=== PATIENT | female | born 1995 | race Hispanic/Latino ===

== ENCOUNTER 2017-11-08 00:34 | Emergency (ER) | payer MEDICAID | END 2017-11-08 00:49 | disposition home or self-care (01) | LOC: EDH 00:34 | DX: Z02.83 Encounter for blood-alcohol and blood-drug test (principal) ==

== ENCOUNTER 2024-10-19 15:15 | Inpatient (IN) | payer SELFPAY ==
[~2024-10-19] VITALS: Ht 152.4 cm; Wt 57.2 kg
[~2024-10-19 15:15] MED LIST: ACET-2079 PO; DOCU-116 PO; IBUP-2077 PO; PREN1TAB63 PO
--- NOTE | 2024-10-19 15:50 | NUR ---
PENDING TEST & GFR RESULTS, IV SITE, & CONSENT FOR CT EXAM.
[2024-10-19] MEDS: acetaMINOPHEN 500 MG TABLET PO ONE (15:59)
[2024-10-19 16:14] LABS: BASOPHILS # (AUTO) 0.02 K/uL (0.00-0.20); BASOPHILS % (AUTO) 0.3 % (0.0-5.0); EOSINOPHILS # (AUTO) 0.04 K/uL (0.00-0.70); EOSINOPHILS % (AUTO) 0.6 % (0.0-8.0); HEMATOCRIT 39.5 % (36-48); IMMATURE GRANULOCYTE ABSOLUTE 0.02 K/uL (0-1); LYMPHOCYTES # (AUTO) 1.8 K/uL (1.0-4.8); LYMPHOCYTES % (AUTO) 24.9 % (21.0-51.0); MEAN CORPUSCULAR HGB CONC 33.2 g/dL (32.0-36.0); MEAN CORPUSCULAR VOLUME 96.6 fL (79-99); MONOCYTES # (AUTO) 0.6 K/uL (0.1-1.0); MONOCYTES % (AUTO) 8.2 % (3.0-13.0); NEUTROPHILS # (AUTO) 4.7 K/uL (1.8-7.7); NEUTROPHILS % (AUTO) 65.7 % (40.0-77.0); PLATELET COUNT (AUTO) 295 K/uL (130-400); RED BLOOD CELL COUNT(AUTO) 4.09 MIL/uL (4.00-5.50); RED CELL DISTRIBUTION WIDTH 12.2 % (11.0-15.5); WHITE BLOOD COUNT (AUTO) 7.1 K/uL (4.8-10.8)
[2024-10-19] MEDS: morPHINE 2 MG SYG IVP ONE (16:17)
[2024-10-19] MEDS: ondanSETRON 4MG INJ IVP ONE (16:17)
[2024-10-19 16:23] LABS: CREATININE 0.7 mg/dL (0.5-1.0); POTASSIUM 3.6 mmol/L (3.5-5.1)
--- NOTE | 2024-10-19 16:35 | HMCIMG ---
CHEST 1VW HISTORY: Status post fall COMPARISON: None FINDINGS: A frontal projection of the chest was obtained. No acute pulmonary infiltrates is seen. The heart is normal in size. Degenerative changes are seen. Prominent interstitial markings are seen. Aortic calcifications are seen. IMPRESSION: 1. No acute pulmonary infiltrate is seen.
[2024-10-19] MEDS ORDERED: IOHEXOL 350 MG/ML 100ML INFUS..BTL IV ONE (16:40)
[2024-10-19] MEDS: hydroMORPHone 1 MG INJ IVP ONE (17:33)
--- NOTE | 2024-10-19 17:35 | HMCIMG ---
CT CHEST/ABD/PELV W/CONRAST HISTORY: Status post fall COMPARISON: None TECHNIQUE: Multiple sequential axial images of the chest were obtained from the thoracic inlet through upper abdomen. Patient was given 100 cc of Omnipaque through intravenous route. FINDINGS: There are left lower lung subsegmental atelectasis/infiltrates suggestive of lung contusion. No pleural effusion or pericardial effusion is seen. There is small less than 5% left pneumothorax. Nondisplaced fracture cannot be excluded. There are normal size mediastinal and hilar lymph nodes. The heart is not enlarged. Degenerative changes of the thoracolumbar spine are present. There is no evidence of adrenal nodule. IMPRESSION: 1. There is small less than 5% left pneumothorax. Nondisplaced fracture cannot be excluded. There are left lower lung subsegmental atelectasis/infiltrates suggestive of lung contusion. Report was given to the emergency room physician. CT CHEST/ABD/PELV W/CONRAST HISTORY: Status post fall COMPARISON: None TECHNIQUE: Multiple sequential axial images of the abdomen and pelvis were obtained from the dome of the diaphragm through symphysis pubis. Patient was given 100 cc of Omnipaque through intravenous route. Oral contrast was not given. FINDINGS: The liver, spleen, adrenal glands and pancreas are unremarkable. There is no evidence of hydronephrosis bilaterally. No evidence of renal stone is seen. Fecal material is seen in the colon. There are normal size retroperitoneal and mesenteric lymph nodes. No ascites is seen. Tiny free fluid is seen in the posterior cul-de-sac. Pelvic sidewalls are symmetric bilaterally. Bladder is well distended without wall thickening. IMPRESSION: 1. No acute findings. CT was performed with one or more following dose reduction techniques: automated exposure control, adjustment of the mA and kv according to patient's size, or use of a iterative reconstruction technique.
--- NOTE | 2024-10-19 18:15 | ERN ---
General Chief Complaint: Rib Pain Stated Complaint: PAIN LEFT SIDE RIBS Time Seen by MD: 15:16 Time Seen by Midlevel: 15:16 Source: patient History of Present Illness Initial Comments Patient is a 29-year-old female with no significant past medical history presenting to the emergency department with left lower chest wall pain. The patient reports falling three days ago onto her left side. The pain to her left lower ribcage has been progressively worsening. Today she was unable to take deep breaths so she decided to report to the ER for further evaluation. At the time of the fall she denied any head injury or loss of consciousness. Denies being on any blood thinners. Denies any past surgical history. Allergies: Coded Allergies: ibuprofen (Unverified Allergy, Mild, 12/15/23) Home Meds Reported Medications Acetaminophen with Codeine (Acetaminophen-Cod #3 Tablet) 300 Mg-30 Mg Tablet, 1 EACH PO Q4H, #30 TAB 12/16/23 Ibuprofen (Ibuprofen 800 mg Tab) 800 Mg Tab, 800 MG PO Q8H PRN for PAIN, #60 TAB 12/16/23 Docusate Sodium (Colace) 100 Mg Capsule, 100 MG PO BID, #60 CAP 12/16/23 Vit/Iron Fumarate/FA ( Tablet) 28 Mg Iron-800 Mcg Tablet, 1 EACH PO HS, TAB 12/15/23 Past Medical History Past Medical History: Gallstones, GERD Past Surgical History: Surgical History Other: COLONOSCOPY, EGD Female( History) LMP: Sep 21, 2024 ROS Dictation CONSTITUTIONAL: Negative except for HPI HEAD/FACE: Negative except for HPI EENT: Negative except for HPI RESPIRATORY: Negative except for HPI GASTROINTESTINAL/ABDOMINAL: Negative except for HPI GENITOURINARY: Negative except for HPI MUSCULOSKELETAL: Negative except for HPI INTEGUMENTARY: Negative except for HPI NEUROLOGICAL/PSYCH: Negative except for HPI HEMATOLOGIC/LYMPHATIC: Negative except for HPI All Systems Negative, Except as noted above. 13 point review of systems assessed and all negative except for above. Physical Exam Physical Exam Dictation Vital Signs reviewed General Appearance: Alert, oriented x 3, no acute distress, well developed, nourished. Head and Face: non-traumatic. Eyes: PERRL, pink conjunctivas, eyelid no trauma, anterior chamber with arcus senilis. Ears: Pinnas intact and no signs of trauma or erythema ear canals clear and no discharge TM no erythema Nose: No discharge, no bleeding. Oropharynx: Mouth normal, tongue pink, pharynx clear,no erythema, tonsils no exudates, no abscesses noted, mucous membrane moist Neck: Supple, non-tender, no thyromegaly, no masses, no JVD, no bruits Breast:Deferred Chest: Moderate to severe tenderness to the left lower chest wall Lungs:Clear, well-ventilated, symmetric, no rales, no wheezing, no rhonchi, no stridor, good breath sounds bilaterally Heart: Regular rate, regular rhythm, no murmur, no gallops Vascular: no peripheral edema, Abdomen: Soft, positive bowel sounds, nondistended, no guarding, nontender, no rebound, no masses no hepatomegaly, no splenomegaly, no Lazo's sign, no hernias. Rectal: Deferred Genital: Deferred Neurological: Normal speech, motor function intact, sensory function intact Musculoskeletal: Neck nontender, full range of motion, back nontender, full range of motion, Extremities: nontender, full range of motion Skin: Color pink, dry, no turgor, no rash, no lacerations, no abrasions, no contusions. Lymphatic: Deferred Results Laboratory and Microbiology Lab and Micro Result Laboratory Tests Test 10/19/24 16:07 White Blood Count 7.1 K/uL (4.8-10.8) Red Blood Count 4.09 MIL/uL (4.00-5.50) Hemoglobin 13.1 g/dL (12.0-16.0) Hematocrit 39.5 % (36-48) Mean Corpuscular Volume 96.6 fL (79-99) Mean Corpuscular Hemoglobin 32.0 pg (27.0-33.0) Mean Corpuscular Hemoglobin Concent 33.2 g/dL (32.0-36.0) Red Cell Distribution Width 12.2 % (11.0-15.5) Platelet Count 295 K/uL (130-400) Mean Platelet Volume 10.5 fL (7.5-10.5) Immature Granulocyte % (Auto) 0.3 % (0-1) Neutrophils (%) (Auto) 65.7 % (40.0-77.0) Lymphocytes (%) (Auto) 24.9 % (21.0-51.0) Monocytes (%) (Auto) 8.2 % (3.0-13.0) Eosinophils (%) (Auto) 0.6 % (0.0-8.0) Basophils (%) (Auto) 0.3 % (0.0-5.0) Neutrophils # (Auto) 4.7 K/uL (1.8-7.7) Lymphocytes # (Auto) 1.8 K/uL (1.0-4.8) Monocytes # (Auto) 0.6 K/uL (0.1-1.0) Eosinophils # (Auto) 0.04 K/uL (0.00-0.70) Basophils # (Auto) 0.02 K/uL (0.00-0.20) Absolute Immature Granulocyte (auto 0.02 K/uL (0-1) Nucleated Red Blood Cells 0.0 % (0.0-0.19) Sodium Level 136 mmol/L (136-145) Potassium Level 3.6 mmol/L (3.5-5.1) Chloride Level 102 mmol/L (101-111) Carbon Dioxide Level 29 mmol/L (21-32) Blood Urea Nitrogen 13 mg/dL (7-18) Creatinine 0.7 mg/dL (0.5-1.0) Glomerular Filtration Rate Calc 121 mL/min (>90) Random Glucose 92 mg/dL (70-105) Total Calcium 9.4 mg/dL (8.5-10.1) Total Creatine Kinase 103 U/L (21-232) Troponin I High Sensitivity 9 ng/L (4-50) Serum Test, Qualitative NEGATIVE (NEGATIVE) Labs Reviewed?: Yes MDM MDM: Patient is a 29-year-old female with no significant past medical history presenting to the emergency department with left lower chest wall pain. The patient reports falling three days ago onto her left side. The pain to her left lower ribcage has been progressively worsening. Today she was unable to take deep breaths so she decided to report to the ER for further evaluation. At the time of the fall she denied any head injury or loss of consciousness. Denies being on any blood thinners. Denies any past surgical history. On physical examination the patient appears to be in moderate amount of distress secondary to pain. There is some moderate to severe tenderness to the left lower ribcage. There was no crepitus noted. Breath sounds are present bilaterally. A chest x-ray was obtained to rule out a large pneumothorax however her chest x-ray does not reveal any acute abnormalities. Given the patient's clinical presentation of severe pain a CT scan of the chest abdomen and pelvis with contrast was ordered. Your CBC and chemistries are unremarkable. CT scan reveals a small left pneumothorax of less than 5%. There was also a pulmonary contusion noted on CT scan. There was no obvious rib fracture but an underlying nondisplaced rib fracture can not be excluded at this time. The patient was placed on 4 L nasal cannula. Case was discussed with general surgeon on-call who agrees to consult on the patient. He recommends admission to hospitalist service. The case was then discussed with the hospitalist on-call who agrees to admit the patient for further observation and management. Differential diagnosis: Pneumothorax, rib fracture, pulmonary contusion Rationale: Tests considered and ordered secondary to shared decision making include: Previous outside records reviewed: Old ER visits. Risk of complication and/or morbidity or mortality of patient management: None Medications-Per medication reconciliation Need for hospitalization: Patient does meet criteria for hospitalization. Need for emergency major/minor surgery: No There are no social concerns with this patient. Prescription drug management Prescriptions will include symptomatic care Patient's prior external medical records from other ER visits were reviewed by me as indicated. Prior testing and results from previous visits were reviewed. Prior tests were taken into account with medical decision making and resource utilization, independent historian/historians were used to obtain complete medical history. I independently interpreted the test that were performed, results were reviewed by me and considered findings on radiology if ordered. Medical management and examination interpretation discussions were had by me with other qualified healthcare professionals as indicated for the patient's care. ED Course Orders Procedure Category Date Status Time Cbc With Differential LAB 10/19/24 Complete 15:43 Basic Metabolic Panel LAB 10/19/24 Complete 15:43 Testing, LAB 10/19/24 Complete Serum Hcg 15:43 Troponin I High LAB 10/19/24 Complete Sensitivity 15:43 Creatine Kinase, Total LAB 10/19/24 Complete 15:43 Ct Chest/Abd/Pelv CT 10/19/24 Resulted W/Conrast 15:43 Acetaminophen 500mg PHA 10/19/24 Complete Tab (Tylenol 500mg T 16:00 Chest 1vw RAD 10/19/24 Resulted 16:08 Morphine 2mg Syg PHA 10/19/24 Complete (Morphine 2mg Syg) 16:30 Ondansetron 4mg Inj PHA 10/19/24 Complete (Zofran 4mg Inj) 16:30 Iohexol (Omnipaque) PHA 10/19/24 Complete 16:40 Hydromorphone 1 Mg PHA 10/19/24 Complete Inj (Dilaudid 1mg Inj 17:30 Current Medications Medications (Trade) Dose Ordered Sig/Issa Route PRN Reason Start Time Stop Time Status Last Admin Dose Admin Acetaminophen (TYLenol 500MG TAB) 1,000 mg ONCE ONCE PO 10/19/24 16:00 10/19/24 16:01 DC Hydromorphone HCl (DiLAUDid 1MG INJ) 1 mg ONCE ONCE IVP 10/19/24 17:30 10/19/24 17:31 DC 10/19/24 17:33 Iohexol (Omnipaque) 35,000 mg STK-MED ONCE IV 10/19/24 16:40 10/19/24 16:40 DC Morphine Sulfate (morPHINE 2MG SYG) 2 mg ONCE ONCE IVP 10/19/24 16:30 10/19/24 16:31 DC 10/19/24 16:17 Ondansetron HCl (zoFRAN 4MG INJ) 4 mg ONCE ONCE IVP 10/19/24 16:30 10/19/24 16:31 DC 10/19/24 16:17 Vital Signs Date Time Temp Pulse Resp B/P (MAP) Pulse Ox O2 Delivery O2 Flow Rate FiO2 10/19/24 17:39 98.1 69 18 100/61 98 Nasal Cannula* 4 36 10/19/24 17:13 98.1 82 18 112/58 98 Room Air* 0 21 10/19/24 15:55 98.8 84 20 104/62 98 Room Air* 0 21 10/19/24 15:22 98.6 94 18 124/74 100 Room Air [address] [address] IMAGING REPORT Signed PATIENT: GREG MAXWELL MR#: [id number] : 1995 SEX: F AGE: 29 LOCATION: [facility] ORDER [id number] STATUS: REG ER REPORT#: [id number] SERVICE 1543 REASON: r/o pneumothorax/rib fractures/pulmonary contusion s/p fall ORDERING PHYSICIAN: VERONIQUE QUEZADA PROCEDURE: CAP W - CT CHEST/ABD/PELV W/CONRAST CT CHEST/ABD/PELV W/CONRAST HISTORY: Status post fall COMPARISON: None TECHNIQUE: Multiple sequential axial images of the chest were obtained from the thoracic inlet through upper abdomen. Patient was given 100 cc of Omnipaque through intravenous route. FINDINGS: There are left lower lung subsegmental atelectasis/infiltrates suggestive of lung contusion. No pleural effusion or pericardial effusion is seen. There is small less than 5% left pneumothorax. Nondisplaced fracture cannot be excluded. There are normal size mediastinal and hilar lymph nodes. The heart is not enlarged. Degenerative changes of the thoracolumbar spine are present. There is no evidence of adrenal nodule. IMPRESSION: 1. There is small less than 5% left pneumothorax. Nondisplaced fracture cannot be excluded. There are left lower lung subsegmental atelectasis/infiltrates suggestive of lung contusion. Report was given to the emergency room physician. CT CHEST/ABD/PELV W/CONRAST HISTORY: Status post fall COMPARISON: None TECHNIQUE: Multiple sequential axial images of the abdomen and pelvis were obtained from the dome of the diaphragm through symphysis pubis. Patient was given 100 cc of Omnipaque through intravenous route. Oral contrast was not given. FINDINGS: The liver, spleen, adrenal glands and pancreas are unremarkable. There is no evidence of hydronephrosis bilaterally. No evidence of renal stone is seen. Fecal material is seen in the colon. There are normal size retroperitoneal and mesenteric lymph nodes. No ascites is seen. Tiny free fluid is seen in the posterior cul-de-sac. Pelvic sidewalls are symmetric bilaterally. Bladder is well distended without wall thickening. IMPRESSION: 1. No acute findings. CT was performed with one or more following dose reduction techniques: automated exposure control, adjustment of the mA and kv according to patient's size, or use of a iterative reconstruction technique. DICTATED BY: MEHDI CARLSON MD DATE: 10/19/24 171 ELECTRONICALLY SIGNED BY: MEHDI CARLSON MD DATE: 10/19/24 5050 DX & DISP Disposition: Inpatient Decision to Admit Date: Oct 19, 2024 Departure Impression: Primary Impression: Pneumothorax, left Additional Impressions: Left pulmonary contusion, Fall Condition: Stable Referrals: MARGO AMBROSIO DO (PCP) I have reviewed the case, and I agree with, Diagnosis and Plan I performed the substantive portion of the visit. I have reviewed and personally made and approve the management plan that is documented in the note by myself or the JOSE ANTONIO. I acknowledge for responsibility for the patient's management plan. VERONIQUE QUEZADA Oct 19, 2024 18:15
--- NOTE | 2024-10-19 18:23 | HP ---
[facility] HISTORY AND PHYSICAL Date of Service: Oct 19, 2024 Time of Service: 18:21 PCP: Dr. Wen Soria Supervising physicians: Dr. Centeno & Dr. Bauer HISTORY OF PRESENT ILLNESS: Ms. Sanabria is a 29-year-old female with history of GERD who presented to the emergency department with left lower rib/ lower chest wall pain onset 3 days s/p a fall injury. The patient reported that she was mopping, slipped hitting her left side on furniture. The pain to her left lower ribcage has been progressively worsening, and today she was unable to take deep breaths which prompted the ER visit. At the time of the fall she denied any head injury or loss of consciousness. Denies being on any blood thinners. CT chest/abdomen/pelvis with contrast: There is small less than 5% left pneumothorax. Nondisplaced fracture cannot be excluded. There are left lower lung subsegmental atelectasis/infiltrates suggestive of lung contusion. All labs are WNL including a troponin. ED provider request catalyst admit the patient with the diagnosis of left pneumothorax and left pulmonary contusion s/p fall. I assessed/examined patient at bedside in ED 3. The patient's breathing was even, unlabored, on2 L nasal cannula saturating 99%. The patient reports that Dr. Gatica, general surgeon saw her and reports that he said due to big hit and collapse lung she will be admitted for observation. She reports that she is very nauseated, and has had Zofran about 2 hours ago. REVIEW OF SYSTEMS 12-point ROS reviewed with the patient. All pertinent positives mentioned above. Otherwise negative, noncontributory, or non-pertinent. PAST MEDICAL HISTORY: GERD PAST SURGICAL HISTORY: , colonoscopy, EGD PAST SOCIAL HISTORY: Denied: Alcohol, illicit drug, tobacco use FAMILY HISTORY: Noncontributory Coded Allergies: ibuprofen (Unverified Allergy, Mild, 12/15/23) PHYSICAL EXAM GENERAL APPEARANCE: The patient is awake, alert, and oriented, in no acute cardiopulmonary distress. NEUROLOGICAL: Cranial nerves II-XII grossly intact. Motor is 5/5 in bilateral upper and lower extremities proximal to distal. No sensory deficits. HEENT: Face is symmetric. Pupils are equal and reactive. Extraocular movements are intact. NECK: Supple. No JVD. No thyromegaly. No submental, submandibular, pre- /postauricular, occipital or supraclavicular lymphadenopathy. CHEST: Normal chest expansion. No Telemetry. LUNGS: Absence of any rales, rhonchi or any wheezing. CARDIOVASCULAR: Regular. S1 and S2 normal. No appreciable rubs, murmurs or gallops. ABDOMEN: Soft, nontender, and nondistended. There is no rebound, voluntary guarding, or rigidity. : Deferred. No Mendoza. EXTREMITIES: Non-edematous and not cyanotic. No clubbing. Good capillary refill. SKIN: No skin breakdown. Vital Sign (Last 24 Hours) 10/19/24 17:39 Temp 98.1 Pulse 69 Resp 18 B/P (MAP) 100/61 Pulse Ox 98 O2 Delivery Nasal Cannula* O2 Flow Rate 4 FiO2 36 LABS: Laboratory: Test 10/19/24 16:07 Range/Units White Blood Count 7.1 4.8-10.8 K/uL Red Blood Count 4.09 4.00-5.50 MIL/uL Hemoglobin 13.1 12.0-16.0 g/dL Hematocrit 39.5 36-48 % Mean Corpuscular Volume 96.6 79-99 fL Mean Corpuscular Hemoglobin 32.0 27.0-33.0 pg Mean Corpuscular Hemoglobin Concent 33.2 32.0-36.0 g/dL Red Cell Distribution Width 12.2 11.0-15.5 % Platelet Count 295 130-400 K/uL Mean Platelet Volume 10.5 7.5-10.5 fL Immature Granulocyte % (Auto) 0.3 0-1 % Neutrophils (%) (Auto) 65.7 40.0-77.0 % Lymphocytes (%) (Auto) 24.9 21.0-51.0 % Monocytes (%) (Auto) 8.2 3.0-13.0 % Eosinophils (%) (Auto) 0.6 0.0-8.0 % Basophils (%) (Auto) 0.3 0.0-5.0 % Neutrophils # (Auto) 4.7 1.8-7.7 K/uL Lymphocytes # (Auto) 1.8 1.0-4.8 K/uL Monocytes # (Auto) 0.6 0.1-1.0 K/uL Eosinophils # (Auto) 0.04 0.00-0.70 K/uL Basophils # (Auto) 0.02 0.00-0.20 K/uL Absolute Immature Granulocyte (auto 0.02 0-1 K/uL Nucleated Red Blood Cells 0.0 0.0-0.19 % Sodium Level 136 136-145 mmol/L Potassium Level 3.6 3.5-5.1 mmol/L Chloride Level 102 101-111 mmol/L Carbon Dioxide Level 29 21-32 mmol/L Blood Urea Nitrogen 13 7-18 mg/dL Creatinine 0.7 0.5-1.0 mg/dL Glomerular Filtration Rate Calc 121 >90 mL/min Random Glucose 92 70-105 mg/dL Total Calcium 9.4 8.5-10.1 mg/dL Total Creatine Kinase 103 21-232 U/L Troponin I High Sensitivity 9 4-50 ng/L Serum Test, Qualitative NEGATIVE NEGATIVE DIAGNOSTICS / RADIOLOGY: [ ] ASSESSMENT: Left pneumothorax, less than 5%, s/p traumatic fall, per CT chest with contrast Nondisplaced fracture cannot be excluded, per CT chest Left lung contusion, per CT chest Intractable left lower rib/lower chest wall pain s/p fall injury three days ago Dyspnea, POA Intractable nausea GERD PLAN: Admit to medical floor with continuous telemetry monitoring. Dr. Lundberg, general surgeon has seen the patient in ED. He accepts patient as consult. Monitor respiratory status closely. Continue oxygen therapy as needed. Titrate oxygen to keep SpO2 equal to greater than 92%. Albuterol and Atrovent as needed for shortness of breath or wheezing. P.r.n. medications for: Pain management, fever, nausea, vomiting, constipation, hypertension. Reconcile home medications once available. Monitor renal and liver function. Monitor electrolytes and treat accordingly. A.m. labs/diagnostics: CBC, BMP, Mag, phos, chest x-ray Pending UA and urine drug screen. ADVANCED CARE PLANNING 1. Which of the following were discussed? Hospice Care - No Therapeutic options - Yes Advance Directives - Yes Other discussions - 2. Discussed with who? Patient 3. Voluntary nature of this service was explained to the patient? Yes 4. Amount of time spent - __ over 45 minutes 5. Reviewed by Physician? (if this service was performed by NPP) Yes Patient seen and examined by me. Agree with note by MOTOR VEHICLE CLERK SEE ADDITIONAL ORDERS PER CHART DISCUSSED WITH NURSING STAFF MALACHI BARBA HYDRAULIC TECHNICIAN Oct 19, 2024 18:23
[2024-10-19] MEDS ORDERED: IpraTROPium/alBUTERol SULFATE 3 ML SOLUTION IH PRN (18:30)
[2024-10-19] MEDS ORDERED: hydrALAZine 20MG/ML VIAL IV PRN (18:30)
[2024-10-19] MEDS ORDERED: TEMAZepam 15 MG CAPSULE PO PRN (18:30)
[2024-10-19] MEDS ORDERED: doCUSate SODIUM 100 MG CAP PO PRN (18:30)
[2024-10-19] MEDS ORDERED: LACTULOSE 20 GM/30 ML UDCUP PO PRN (18:30)
[2024-10-19] MEDS ORDERED: acetaMINOPHEN 650 MG SUPPOSITORY RC PRN (18:30)
[2024-10-19] MEDS: ondanSETRON 4MG INJ IVP PRN (18:52)
[2024-10-19] MEDS: PROMETHAZINE HCL 25 MG/ML 1ML AMPULE IM ONE (22:22)
--- NOTE | 2024-10-19 22:54 | NUR ---
PT CARE ASSUMED AT THIS TIME
[2024-10-19] MEDS: HYDROcodone/APAP 5/325 1 TAB TABLET PO PRN (23:53)
--- NOTE | 2024-10-19 23:54 | NUR ---
PT REFUSED PAIN MEDICATION (NARCO) AT THIS TIME. PT EDUCATED ON MEDICATION. PT VERBLIZED UNDERSTANDING OF MEDICATION. PT SHOWS NO SIGNS OF DISTRESS AT THIS TIME. CHARGE NURSE NOTIFIED ABOUT REFUSAL OF PAIN MEDICATION INCLUDING ALTERNATIVE PRN PAIN MEDICATION AT THIS TIME.
--- NOTE | 2024-10-20 00:35 | NUR ---
FURNACE ROOM SUPERVISOR PAGED AT THIS TIME REGAURDING MEDICATION. PENDING CALL BACK AT THIS TIME.
--- NOTE | 2024-10-20 00:48 | NUR ---
SPOKE TO STONE OPERATOR PROVIDER DELMI TEJEDA AT THIS TIME REGARDING MEDICATION QUESTION. ORDERS GIVEN.
[2024-10-20] MEDS: acetaMINOPHEN 325 MG TAB PO PRN (01:29)
--- NOTE | 2024-10-20 03:19 | NUR ---
PT REFUSED URINE DRUNG SCREEN AT THIS TIME Addendum: 10/20/24 at 0319 by [email or web address] PT REFUSED URINE DRUG SCREEN AT THIS TIME
--- NOTE | 2024-10-20 03:55 | NUR ---
EPIC KALEIDOSCOPE ANALYST PROVIDER CALLED AT THIS TIME
[2024-10-20] MEDS: LACTATED RINGERS 1000ML 1,000 ML IV SCH (03:56)
--- NOTE | 2024-10-20 03:58 | NUR ---
SPOKE TO LENS GRINDER PROVIDER AT THIS TIME
--- NOTE | 2024-10-20 06:32 | NUR ---
PT REFUSED MORNING BLOOD DRAW. EDUCATION WAS PROVIDED ABOUT THE IMPORTANCE OF BLOOD DRAWS. PT VERBILIZED UNDERSTANDING. PT STILL REFUSED MORNING BLOOD DRAW.
--- NOTE | 2024-10-20 07:18 | NUR ---
REPORT GIVEN TO PAT ROLLE AT THIS TIME
[2024-10-20 07:33] VITALS: PULSE 96; RESP 21; O2SAT 100
--- NOTE | 2024-10-20 07:39 | PN ---
[facility] PROGRESS NOTE Date of Service: Oct 20, 2024 Time of Service: 07:31 SUBJECTIVE: [29 year old female presented to the ER for left sided pain. Patient s/p fall while mopping. She complained of pain while taking deep breaths. Imaging noted 5% left pneumothorax/lung contusion. She continues to be on on oxygen supplementation on 2lpm with saturation of 100%. Patient was evaluated in the ED room 3. No labs as of yet, stat labs ordered. ] REVIEW OF SYSTEMS 12-point ROS reviewed with the patient. All pertinent positives mentioned above. Otherwise negative, noncontributory, or non-pertinent. PHYSICAL EXAM GENERAL APPEARANCE: The patient is awake, alert, and oriented, in no acute cardiopulmonary distress. NEUROLOGICAL: Cranial nerves II-XII grossly intact. Motor is 5/5 in bilateral upper and lower extremities proximal to distal. No sensory deficits. HEENT: Face is symmetric. Pupils are equal and reactive. Extraocular movements are intact. NECK: Supple. No JVD. No thyromegaly. No submental, submandibular, pre- /postauricular, occipital or supraclavicular lymphadenopathy. CHEST: Normal chest expansion. No Telemetry. LUNGS: Absence of any rales, rhonchi or any wheezing. CARDIOVASCULAR: Regular. S1 and S2 normal. No appreciable rubs, murmurs or gallops. ABDOMEN: Soft, nontender, and nondistended. There is no rebound, voluntary guarding, or rigidity. : Deferred. No Mendoza. EXTREMITIES: Non-edematous and not cyanotic. No clubbing. Good capillary refill. SKIN: No skin breakdown. Vital Signs (last 8hr) Date Time Temp Pulse Resp B/P (MAP) Pulse Ox O2 Delivery O2 Flow Rate FiO2 10/20/24 05:19 100 22 100/59 100 Nasal Cannula* 11 1510/20/24 01:15 65 16 105/73 95 Nasal Cannula* 11 1510/20/24 00:36 69 20 101/69 99 Nasal Cannula* 11 1510/19/24 23:33 61 17 103/59 99 Nasal Cannula* 11 15 LABS: Laboratory: Test 10/19/24 16:07 Range/Units White Blood Count 7.1 4.8-10.8 K/uL Red Blood Count 4.09 4.00-5.50 MIL/uL Hemoglobin 13.1 12.0-16.0 g/dL Hematocrit 39.5 36-48 % Mean Corpuscular Volume 96.6 79-99 fL Mean Corpuscular Hemoglobin 32.0 27.0-33.0 pg Mean Corpuscular Hemoglobin Concent 33.2 32.0-36.0 g/dL Red Cell Distribution Width 12.2 11.0-15.5 % Platelet Count 295 130-400 K/uL Mean Platelet Volume 10.5 7.5-10.5 fL Immature Granulocyte % (Auto) 0.3 0-1 % Neutrophils (%) (Auto) 65.7 40.0-77.0 % Lymphocytes (%) (Auto) 24.9 21.0-51.0 % Monocytes (%) (Auto) 8.2 3.0-13.0 % Eosinophils (%) (Auto) 0.6 0.0-8.0 % Basophils (%) (Auto) 0.3 0.0-5.0 % Neutrophils # (Auto) 4.7 1.8-7.7 K/uL Lymphocytes # (Auto) 1.8 1.0-4.8 K/uL Monocytes # (Auto) 0.6 0.1-1.0 K/uL Eosinophils # (Auto) 0.04 0.00-0.70 K/uL Basophils # (Auto) 0.02 0.00-0.20 K/uL Absolute Immature Granulocyte (auto 0.02 0-1 K/uL Nucleated Red Blood Cells 0.0 0.0-0.19 % Sodium Level 136 136-145 mmol/L Potassium Level 3.6 3.5-5.1 mmol/L Chloride Level 102 101-111 mmol/L Carbon Dioxide Level 29 21-32 mmol/L Blood Urea Nitrogen 13 7-18 mg/dL Creatinine 0.7 0.5-1.0 mg/dL Glomerular Filtration Rate Calc 121 >90 mL/min Random Glucose 92 70-105 mg/dL Total Calcium 9.4 8.5-10.1 mg/dL Total Creatine Kinase 103 21-232 U/L Troponin I High Sensitivity 9 4-50 ng/L Serum Test, Qualitative NEGATIVE NEGATIVE Current Medications Medications (Trade) Dose Ordered Sig/Issa Route PRN Reason Start Time Stop Time Status Last Admin Dose Admin Acetaminophen (TYLenol 325MG TAB) 650 mg Q6H PRN PO FEVER/MILD PAIN LEVEL 1-3 10/19/24 18:30 11/18/24 18:29 10/20/24 01:29 650 MG Acetaminophen (TYLenol 650MG SUPPOSITORY) 650 mg Q6H PRN RC FEVER / MILD PAIN 1-3 IF NPO 10/19/24 18:30 11/18/24 18:29 Acetaminophen/ Hydrocodone Bitart (NORco 5/325MG) 1 tab Q6H PRN PO MILD PAIN (1-3) 10/19/24 18:30 10/24/24 18:29 Albuterol (DUOneb) 1 udvial [id number] PRN IH SHORTNESS OF BREATH/WHEEZING 10/19/24 18:30 11/18/24 18:29 Docusate Sodium (COLace 100MG CAP) 100 mg BID PRN PO c 10/19/24 18:30 11/18/24 18:29 Hydralazine HCl (APRESOLine 20MG INJ) 10 mg Q2H PRN IV SBP GREATER THAN 160 10/19/24 18:30 11/18/24 18:29 Lactated Ringer's 1,000 ml @ 75 mls/hr [id number] IV 10/20/24 03:00 11/19/24 02:59 10/20/24 03:56 75 MLS/HR Lactulose (Constulose 20gm/ 30ml Udcup) 20 gm Q6H PRN PO CONSTIPATION 10/19/24 18:30 11/18/24 18:29 Ondansetron HCl (zoFRAN 4MG INJ) 4 mg Q6H PRN IVP NAUSEA/VOMITING 10/19/24 18:30 11/18/24 18:29 10/20/24 03:23 4 MG Temazepam (restORIL 15 MG CAP) 15 mg HS PRN PO INSOMNIA/SLEEP 10/19/24 18:30 11/18/24 18:29 DIAGNOSTICS / RADIOLOGY: [ ] ASSESSMENT: Acute hypoxemic respiratory failure, on oxygen via 2lpm, POA Left pneumothorax, less than 5%, s/p traumatic fall, per CT chest with contrast Nondisplaced fracture cannot be excluded, per CT chest Left lung contusion, per CT chest Intractable left lower rib/lower chest wall pain s/p fall injury three days ago Dyspnea, POA Intractable nausea GERD PLAN: Admit to medical floor with continuous telemetry monitoring. Dr. Lundberg, general surgeon has seen the patient in ED. He accepts patient as consult. Monitor respiratory status closely. Continue oxygen therapy as needed. Titrate oxygen to keep SpO2 equal to greater than 92%. Albuterol and Atrovent as needed for shortness of breath or wheezing. Pulmonology consulted for eval of pneumothorax P.r.n. medications for: Pain management, fever, nausea, vomiting, constipation, hypertension. Reconcile home medications once available. Monitor renal and liver function. Monitor electrolytes and treat accordingly. Stat labs this morning Still pending UA and urine drug screen. Case discussed with Dr. Strauss, above plan was formulated ATTESTATION BY PHYSICIAN I have seen and examined the patient. I reviewed the documentation, medical decision making, and treatment plan as noted by the mid-level provider above. I agree with the findings and plan of care. ANAYA STRAUSS MD, JANICE B AGPCNP Oct 20, 2024 07:39
[2024-10-20] MEDS: morPHINE 4 MG SYG IVP PRN (08:31)
[2024-10-20 09:17] LABS: HEMATOCRIT 37.1 % (36-48); MEAN CORPUSCULAR HEMOGLOBIN 32.5 pg (27.0-33.0); MEAN CORPUSCULAR HGB CONC 33.7 g/dL (32.0-36.0); MEAN CORPUSCULAR VOLUME 96.4 fL (79-99); RED BLOOD CELL COUNT(AUTO) 3.85 MIL/uL (4.00-5.50); RED CELL DISTRIBUTION WIDTH 12.3 % (11.0-15.5); WHITE BLOOD COUNT (AUTO) 6.2 K/uL (4.8-10.8)
--- NOTE | 2024-10-20 09:22 | EKG ---
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
[2024-10-20 09:26] LABS: CREATININE 0.7 mg/dL (0.5-1.0); POTASSIUM 3.1 mmol/L (3.5-5.1)
[2024-10-20 09:36] LABS: ALBUMIN 3.5 g/dL (3.5-5.0); BILIRUBIN,TOTAL 0.9 mg/dL (0.2-1.0); MAGNESIUM 1.8 mg/dL (1.80-2.40); PHOSPHORUS 3.3 mg/dL (2.5-4.9)
[2024-10-20] MEDS ORDERED: hydrALAZine 20MG/ML VIAL IV PRN (12:00)
[2024-10-20 13:25] VITALS: PULSE 87; RESP 21; O2SAT 100
[2024-10-20] MEDS: morPHINE 2 MG SYG IVP PRN (13:50)
--- NOTE | 2024-10-20 15:49 | CONS ---
[facility] CONSULTATION NOTE Date Patient Seen: Oct 20, 2024 Time of Visit: 1238 Supervising Physician: Dr. Nieves Reason for Consultation: [ ] Pneumothorax Inpatient Consults: BIS PROBLEM LIST: Acute hypoxemic respiratory failure, on oxygen via 2lpm, POA Left pneumothorax, less than 5%, s/p traumatic fall, per CT chest with contrast Nondisplaced fracture cannot be excluded, per CT chest Left lung contusion, per CT chest Intractable left lower rib/lower chest wall pain s/p fall injury three days ago Dyspnea, POA Intractable nausea GERD HPI: Ms. Sanabria is a 29-year-old female with history of GERD who presented to the emergency department with left lower rib/ lower chest wall pain onset 3 days s/p a fall injury. The patient reported that she was mopping, slipped hitting her left side on furniture. The pain to her left lower ribcage has been progr essively worsening, and today she was unable to take deep breaths which prompted the ER visit. At the time of the fall she denied any head injury or loss of consciousness. Denies being on any blood thinners. CT chest/abdomen/pelvis with contrast: There is small less than 5% left pneumothorax. Nondisplaced fracture cannot be excluded. There are left lower lung subsegmental atelectasis/infiltrates suggestive of lung contusion. All labs are WNL including a troponin. Patient was seen and examined by bedside no family present. Patient is awake alert able to answer simple questions appropriately. Patient is currently on2 L nasal cannula appears to be tolerating well. Patient denies any chest pain or shortness of breadth at this time. Patient denies any nausea vomiting or abdominal pain. Pulmonology were consulted for pneumothorax. Patient's CT abdomen pelvis chest shows a 5% left pneumothorax caused by injury patient's slipping and hitting herself on the counter top causing 5% left pneumothorax. Thank you for allowing us to participate in the care of this patient we will continue to monitor patient while in the hospital recommendations listed below PAST MEDICAL HX: see above PAST SURGICAL HX: noncontributory SOCIAL HISTORY: No tobacco, ETOH, or illicit drug use Coded Allergies: ibuprofen (Unverified Allergy, Mild, 12/15/23) REVIEW OF SYSTEMS: 12 point ROS reviewed with patient. Pertinent positives mentioned above. Otherwise negative. PHYSICAL EXAM: GENERAL: alert, weak, awake oriented x 3 HEENT: EOMI, Sclera non icteric, moist mucosa NECK: Supple, no JVD, trachea midline LUNGS: Clear breath sounds bilaterally. No wheezes HEART: Regular rate and rhythm. Normal S1 and S2, without murmurs ABD: Abdomen soft, nontender. Bowel sounds present EXT: No clubbing cyanosis or edema NEURO: Alert and oriented to person, follows commands Vital Signs (last 8hr) Date Time Temp Pulse Resp B/P (MAP) Pulse Ox O2 Delivery O2 Flow Rate FiO2 10/20/24 14:00 98.8 75 19 117/68 100 Non-Rebreather+ 15 100 10/20/24 13:25 87 21 Non Rebreather 100 10/20/24 12:00 97.2 70 18 127/72 100 Non-Rebreather+ 15 100 10/20/24 10:45 98.4 78 18 117/76 99 Nasal Cannula* 2 28 10/20/24 09:45 63 18 97/61 99 Room Air* 0 21 10/20/24 08:00 97.9 69 18 107/67 99 Nasal Cannula* 2 28 LABS: Hematology Labs: Test 10/20/24 09:06 10/19/24 16:07 Range/Units White Blood Count 6.2 4.8-10.8 K/uL Red Blood Count 3.85 L 4.00-5.50 MIL/uL Hemoglobin 12.5 12.0-16.0 g/dL Hematocrit 37.1 36-48 % Mean Corpuscular Volume 96.4 79-99 fL Mean Corpuscular Hemoglobin 32.5 27.0-33.0 pg Mean Corpuscular Hemoglobin Concent 33.7 32.0-36.0 g/dL Red Cell Distribution Width 12.3 11.0-15.5 % Platelet Count 289 130-400 K/uL Mean Platelet Volume 10.6 H 7.5-10.5 fL Nucleated Red Blood Cells 0.0 0.0-0.19 % Immature Granulocyte % (Auto) 0.3 0-1 % Neutrophils (%) (Auto) 65.7 40.0-77.0 % Lymphocytes (%) (Auto) 24.9 21.0-51.0 % Monocytes (%) (Auto) 8.2 3.0-13.0 % Eosinophils (%) (Auto) 0.6 0.0-8.0 % Basophils (%) (Auto) 0.3 0.0-5.0 % Neutrophils # (Auto) 4.7 1.8-7.7 K/uL Lymphocytes # (Auto) 1.8 1.0-4.8 K/uL Monocytes # (Auto) 0.6 0.1-1.0 K/uL Eosinophils # (Auto) 0.04 0.00-0.70 K/uL Basophils # (Auto) 0.02 0.00-0.20 K/uL Absolute Immature Granulocyte (auto 0.02 0-1 K/uL Chemistry Labs: Test 10/20/24 09:06 10/19/24 16:07 Range/Units Sodium Level 135 L 136-145 mmol/L Potassium Level 3.1 L 3.5-5.1 mmol/L Chloride Level 102 101-111 mmol/L Carbon Dioxide Level 30 21-32 mmol/L Blood Urea Nitrogen 10 7-18 mg/dL Creatinine 0.7 0.5-1.0 mg/dL Glomerular Filtration Rate Calc 121 >90 mL/min Random Glucose 114 H 70-105 mg/dL Total Calcium 8.4 L 8.5-10.1 mg/dL Phosphorus Level 3.3 2.5-4.9 mg/dL Magnesium Level 1.80 1.80-2.40 mg/dL Total Bilirubin 0.9 0.2-1.0 mg/dL Aspartate Amino Transf (AST/SGOT) 14 10-37 U/L Alanine Aminotransferase (ALT/SGPT) 15 12-78 U/L Alkaline Phosphatase 53 50-136 U/L Total Protein 7.0 6.0-8.3 g/dL Albumin 3.5 3.5-5.0 g/dL Total Creatine Kinase 103 21-232 U/L Troponin I High Sensitivity 9 4-50 ng/L Serum Test, Qualitative NEGATIVE NEGATIVE DIAGNOSTICS / RADIOLOGY RESULTS: na PLAN Keep patient on 100% FiO2 non-rebreather And recheck chest x-ray in a.m. Rest of the care per primary team NEURO: Minimize central acting medications as possible. Maintain fall precautions, adequate lighting during the day PULMONARY: Supplemental 02 as needed. Maintain aspiration precautions at all times CARDIOVASCULAR: Follow hemodynamics. Vital signs per facility protocol GI & NUTRITION: Continue with nutritional support. Continue stool softeners and laxatives as needed. KIDNEYS & ELECTROLYTES: Strict monitoring of intake, output and overall fluid balance. Avoid nephrotoxic medications to the extent possible. Medications to be dosed according to renal function. Monitor electrolytes and replace as needed ENDOCRINE: Maintain blood glucose between 100-180 at all times. Hypoglycemia protocol in place INFECTIOUS DISEASE: Trend temperature, WBC and procalcitonin level Follow cultures, deescalate antibiotics as soon as possible. Panculture if new onset fever ONCOLOGY/HEMATOLOGY/COAGULATION: Monitor for s/s of bleeding Monitor hemoglobin, coagulation studies as needed SKIN: Pressure ulcer prevention per facility protocol Specialty mattress ORTHO/REHAB: Continue PT/OT Prophylaxis: Continue GI and DVT prophylaxis Code Status: Full Resuscitation Disposition: TBD Other: Case discussed with supervising physician plan of care agreed upon UGO SALEEM Oct 20, 2024 15:49
--- NOTE | 2024-10-20 19:22 | HMCSR ---
APPROVED REPORT EXAM: Two-dimensional and M-mode echocardiogram with Doppler and color Doppler. INDICATION ICD: Left chest pain status post traumatic fall. 2D Dimensions RVDd3.7 cmLVEF(%)70.4 (>50%)LVED Vol(simp.)74.8 mL IVSd0.5 (0.7-1.1cm)FS(%)40 %LVES Vol(simp.)27.0 mL LVDd4.3 (3.8-5.6cm)LA (2D)3.4 (1.6-4.0cm)LVEF(%, simp.)64 % PWd0.6 (0.7-1.1cm)Ao Root(2D)2.5 (2.0-3.7cm)LA ESV INDEX (4CH)19.60 mL/m2 IVSs0.8 cmLVOT diam2.0 (1.8-2.4cm)LA ESV INDEX (2CH)18.30 mL/m2 LVDs2.6 (2.5-4.0cm)LA ESV INDEX (BP)20.30 mL/m2 PWs1.1 cm Deformation Strain Apical 427.0 % Apical 224.0 % Apical 322.0 % Global Dcjpxn33.0 % M-Mode Dimensions EPSS0.6 cm LA (MM)3.7 (1.6-4.0cm) Ao Root(MM)2.6 (2.0-3.7cm) Aortic Valve AoV VTI0.3 mAo Mean GR5.0 mmHgLVOT VTI0.21 m LUTHER (VMAX)2.2 cm2AVA (VTI) 2.2 cm2 Mitral Valve MV E Vmax71.8 cm/sDECEL Vwoy575 ms MV A Vmax41.7 cm/sP 1/2 T73 ms E/A ratio1.7MVA (PHT)3.0 cm2 TDI E/E' Medial6.4E/E' Lateral7.0 Medial E' Peak V11.20 cm/sLateral E' Peak V10.20 cm/s Pulmonary Valve PV Vmax1.0 m/s PV Peak GR4.0 mmHg Tricuspid Valve TR Vmax2.0 m/s TR Peak GR16.6 mmHg Left Ventricle The left ventricle is normal size. GLS -25.0%. There is normal left ventricular wall thickness. LVEF is 60-65%. The left ventricular diastolic function is normal. Right Ventricle The right ventricle is normal size. The right ventricular systolic function is normal. Atria The left atrium size is normal. The right atrium size is normal. Aortic Valve The aortic valve is normal in structure. No aortic regurgitation is present. There is no aortic valvu lar stenosis. Mitral Valve The mitral valve is normal in structure. There is no mitral valve regurgitation noted. There is no mi tral valve stenosis. Tricuspid Valve The tricuspid valve is normal in structure. There is trace of tricuspid valve regurgitation noted. Pulmonic Valve The pulmonary valve is normal in structure. There is no pulmonic valvular regurgitation. Great Vessels The aortic root is normal in size. The IVC is normal in size and collapses >50% with inspiration. Pericardium There is no pericardial effusion. Other Information Quality : Technically difficult due to pt complaining of left side chest pain. Conclusion The left ventricle is normal size. LVEF is 60-65%. The left ventricular diastolic function is normal. The right ventricle is normal size. The right ventricular systolic function is normal. The left atrium size is normal. The right atrium size is normal. No valvular pathology. There is no pericardial effusion.
[2024-10-20 20:31] VITALS: PULSE 79; RESP 21; O2SAT 100
[2024-10-20] MEDS: PoTASSium chloRIDE 10MEQ/100ML 100 ML IV ONE (20:53)
[2024-10-20] MEDS: MAGNESIUM 2GM PREMIX 50ML 50 ML IV PRN (20:54)
[2024-10-20] MEDS ORDERED: GLUCAGON 1MG KIT 1 MG ML IM PRN (21:00)
[2024-10-20] MEDS ORDERED: DEXTROSE 50%-WATER 50 ML DISP.SYRIN IV PRN (21:00)
[2024-10-20] MEDS ORDERED: PoTASSium chloRIDE 20MEQ ER 20 MEQ ERTAB PO PRN (21:00)
[2024-10-20] MEDS ORDERED: PoTASSium chloRIDE 20MEQ/100ML 100 ML IV PRN (21:00)
[2024-10-20] MEDS ORDERED: PoTASSium chl 10% ELIXIR 20MEQ 20 MEQ/15 ML UDCUP PO PRN (21:00)
[2024-10-20 22:40] VITALS: BP 131/77; PULSE 93; RESP 22; TEMP 98.5; O2SAT 97
--- NOTE | 2024-10-20 22:50 | NUR ---
Informed patient and who had just arrived with two small children that visiting hours are over at 2000. Children are not allowed to stay over night. Patient stated she would talk to the nurse on 3rd floor.
--- NOTE | 2024-10-20 22:52 | NUR ---
[facility] PATIENTS SCREAMING IN ROOM REQUESTING HELP, SOON NURSES ARRIVED PATIENT NOTED WITH SEIZURE LIKE ACTIVITY. [facility] RESPONSE IMMEDIATELY CALLED. WITH THE ASSISTANCE OF Ciera TORRES RN PATIENT TURNED ON HER SIDE. CALLED AND INFORMED MALACHI BARBA HARNESS RIGGER [employer]CRET[employer] BLOCK MAKER FOR HOSPITALIST THAT PATIENT WAS HAVING SEIZURE LIKE ACTIVITY. HARNESS RIGGER STATED TO GO AHEAD AND ADMINISTER 2MG ATIVAN IV X 1 DOSE NOW. PER SPOUSE PATIENT HAS NO PREVIOUS HISTORY OF SEIZURES. PATIENT ARRIVED TO FLOOR WITH DX OF LEFT PNEUMOTHORAX ON A NON-REBREATHER MASK 15L O2. VITALS SIGNS ON ADMISSION 131/77 HR 92 RR 18 SPO2 100%. 2255 BP 127/70 HR 110 RR20 SPO2 99%, 2300 BP 126/69 HR 126 RR 17 SPO2 99%. HELLER CATHETER INSERTED PER STERILE TECHNIQUE AND URINE SENT ORDERED BY HARNESS RIGGER.
[2024-10-20] MEDS: LORazepam 2 MG/ML 1 ML VIAL ONE (22:57)
[2024-10-20 23:00] LABS: ABG BASE EXCESS -15.3 mmol/L (-2.0-3.0); ABG HCO3 13.2 mmol/L (21.0-28.0); ABG OXYGEN SATURATION 99.1 % (94.0-98.0); ABG PCO2 40 mmHg (32-45); ABG PH 7.133 (7.350-7.450); CARBON MONOXIDE 0.3 % (0.5-1.5); HHb 0.9; PO2, ARTERIAL BG 238.8 mmHg (83.0-108.0)
[2024-10-20] MEDS: LORazepam 2 MG/ML 1 ML VIAL IVP ONE (23:06)
--- NOTE | 2024-10-20 23:06 | PN ---
Rapid Response Note Event Date: 10/21/2024 Event Time: 1814 Code Status: Full Code Events Prior to Rapid Response: Ms. Sanabria is a 29-year-old female with history of GERD who presented to the emergency department on 10/19/2024 with left lower rib/ lower chest wall pain onset 3 days s/p a fall injury. The patient reported that she was mopping, slipped hitting her left side of her chest on furniture. The pain to her left lower ribcage has been progressively worsening, and today she was unable to take deep breaths which prompted the ER visit. At the time of the fall she denied any head injury or loss of consciousness. Denies being on any blood thinners. CT chest/abdomen/pelvis with contrast: There is small less than 5% left pneumothorax. Nondisplaced fracture cannot be excluded. There are left lower lung subsegmental atelectasis/infiltrates suggestive of lung contusion. All labs are WNL including a troponin. ED provider request [facility] team admit the patient with the diagnosis of left pneumothorax and left pulmonary contusion s/p fall. Event: On 10/20/2024 18:15 rapid was called. The patient had just arrived from ED to room 320 and the patient started seizing, the patient did have an incontinent episode. When I arrived the patient was no longer seizing. The patient has no prior history of seizures. She was able to answer questions right after her seizure and despite the Ativan 2 mg IV she was able to hold a conversation. Yesterday patient declined giving a urine sample. Today the urine was obtained via Mendoza and she was found to be positive for marijuana. She has been her toddler while in ED. The patient has been very nauseated during her [facility] stay. ABGs were obtain: PH 7.133, pCO2 40, PO2 230.8, bicarbonate 13.2, O2 sat 99.1, base excess-15.3, on a non-rebreather, lactic acid 10.6, glucose 130. CT chest and CT head were obtained. CT chest: 1. Left lower lobe pulmonary infiltrates are seen with subsegmental atelectasis slightly increased from previous study suggestive lung contusion. There is interval development SMALL left pleural effusion. There is tiny left anterior pneumothorax of less than 5% improved from previous study. Nondisplaced fracture cannot be excluded. Right lower lung subsegmental atelectasis changes are also seen. CT head:1. No acute intracranial bleed is seen. I suspect the new onset of seizure is caused by withdraw and marijuana and the intractable nausea and vomiting was caused by Cannabinoid Hyperemesis Syndrome. I left the patient's site hemodynamically stable. [facility] will continue to monitor the patient closely along side of pulmonology team. Total critical care time over 45 minutes. MALACHI BARBA Oct 20, 2024 23:06
[2024-10-20] MEDS: SODIUM BICARB 50MEQ 50ML VIAL IV ONE (23:21)
[2024-10-20 23:32] VITALS: O2SAT 100
[2024-10-20] MEDS: ondanSETRON 4MG INJ IVP ONE (23:33)
[2024-10-20 23:40] LABS: APPEARANCE,URINE CLOUDY (CLEAR); BILIRUBIN,URINE NEGATIVE (NEGATIVE); COLOR,URINE COLORLESS (YELLOW); GLUCOSE, URINE (UA) NEGATIVE (NEGATIVE); KETONES,URINE 10 mg/dL (NEGATIVE); LEUKOCYTE ESTERASE ,URINE 75 Leu/uL (NEGATIVE); NITRATE,URINE NEGATIVE (NEGATIVE); OCCULT BLOOD,URINE NEGATIVE (NEGATIVE); PH,URINE 6.5 (5.0-8.0); PROTEIN,URINE NEGATIVE (NEGATIVE); UROBILINOGEN,URINE 0.2 mg/dL (0.2-1.0)
[2024-10-20 23:41] LABS: ADD UA MICROSCOPIC YES
[2024-10-20 23:43] LABS: BACTERIA,URINE FEW /HPF (None Seen); MUCUS,URINE RARE LPF (None Seen); RBC,URINE 0-1 /HPF (0-1); SQUAMOUS EPITHELIAL CELL,UR MANY /HPF (0-2)
[2024-10-20 23:47] LABS: AMPHET/METH SCREEN,URINE NEGATIVE (NEGATIVE); BARBITURATE SCREEN, URINE NEGATIVE (NEGATIVE); BENZODIAZEPINES SCREEN,URINE POSITIVE (NEGATIVE); CANNABINOID SCREEN,URINE POSITIVE (NEGATIVE); COCAINE SCREEN,URINE NEGATIVE (NEGATIVE); OPIATE SCREEN,URINE NEGATIVE (NEGATIVE); PHENCYCLIDINE SCREEN,URINE NEGATIVE (NEGATIVE)
--- NOTE | 2024-10-20 23:58 | NUR ---
PAGED MALACHI TEJEDA REGARDING CT ORDER [id number] RECEIVED CALL BACK FROM DELMI TEJEDA [facility] RADIOLOGY REQUESTING ORDER FOR CT NEEDS TO BE CHANGED TO WITH OUT CONTRAST. ALSO MADE HER AWARE OF LACTIC ACID OF 12.2, ORDERS GIVEN AND CARRIED OUT.
[2024-10-21] VITALS (7 sets, daily range): BP systolic 95–144; BP diastolic 45–83; PULSE 65–87; RESP 17–20; TEMP 97.2–99.1; O2SAT 99–100
[2024-10-21 00:01] LABS: HEMATOCRIT 43.6 % (36-48); MEAN CORPUSCULAR HEMOGLOBIN 32.5 pg (27.0-33.0); MEAN CORPUSCULAR HGB CONC 31.9 g/dL (32.0-36.0); MEAN CORPUSCULAR VOLUME 101.9 fL (79-99); RED BLOOD CELL COUNT(AUTO) 4.28 MIL/uL (4.00-5.50); RED CELL DISTRIBUTION WIDTH 12.2 % (11.0-15.5); WHITE BLOOD COUNT (AUTO) 13.3 K/uL (4.8-10.8)
[2024-10-21 00:04] LABS: CREATININE 0.9 mg/dL (0.5-1.0); POTASSIUM 3.7 mmol/L (3.5-5.1)
[2024-10-21] MEDS ORDERED: IOHEXOL-350 75 ML VIAL IV ONE (00:14)
[2024-10-21] MEDS ORDERED: 0.9%NACL 1000ML 1,000 ML IV SCH ×2 (00:15→00:30)
[2024-10-21] MEDS ORDERED: IOHEXOL-350 50ML VIAL IV ONE (00:50)
--- NOTE | 2024-10-21 01:52 | HMCIMG ---
CT HEAD/BRAIN W/O CONTRAST HISTORY: New onset seizure COMPARISON: None TECHNIQUE: Multiple sequential axial images of the head were obtained from the base of the skull through vertex. Patient was not given contrast through intravenous route. FINDINGS: The ventricles and extraventricular CSF spaces are nondilated for patient's age. There is no midline shift, mass effect or herniation. No acute intracranial bleed is seen. Visualized portion of the paranasal sinuses are grossly within normal limits. IMPRESSION: 1. No acute intracranial bleed is seen. CT was performed with one or more following dose reduction techniques: automated exposure control, adjustment of the mA and kv according to patient's size, or use of a iterative reconstruction technique.
--- NOTE | 2024-10-21 01:57 | HMCIMG ---
CT CHEST W/CONTRAST HISTORY: Worsening of pneumothorax COMPARISON: 10/19/2024 TECHNIQUE: Multiple sequential axial images of the chest were obtained from the thoracic inlet through upper abdomen. Patient was given 50 cc of Omnipaque through intravenous route. FINDINGS: Left lower lobe pulmonary infiltrates are seen with subsegmental atelectasis slightly increased from previous study suggestive lung contusion. There is interval development SMALL left pleural effusion. There is tiny left anterior pneumothorax of less than 5% improved from previous study. Nondisplaced fracture cannot be excluded. Right lower lung subsegmental atelectasis changes are also seen.. There are normal size mediastinal and hilar lymph nodes. The heart is not enlarged. Degenerative changes of the thoracolumbar spine are present. There is no evidence of adrenal nodule. IMPRESSION: 1. Left lower lobe pulmonary infiltrates are seen with subsegmental atelectasis slightly increased from previous study suggestive lung contusion. There is interval development SMALL left pleural effusion. There is tiny left anterior pneumothorax of less than 5% improved from previous study. Nondisplaced fracture cannot be excluded. Right lower lung subsegmental atelectasis changes are also seen.. CT was performed with one or more following dose reduction techniques: automated exposure control, adjustment of the mA and kv according to patient's size, or use of a iterative reconstruction technique.
[2024-10-21] MEDS ORDERED: chlordiazePOXIDE HCL 25 MG CAP PO PRN (03:30)
[2024-10-21] MEDS ORDERED: PHARMACY COMMUNICATION MISC PRN (03:30)
[2024-10-21] MEDS ORDERED: LORazepam 2 MG/ML 1 ML VIAL IVP PRN ×2 (03:30)
[2024-10-21 03:43] LABS: MEAN CORPUSCULAR HEMOGLOBIN 32.2 pg (27.0-33.0); MEAN CORPUSCULAR HGB CONC 33.5 g/dL (32.0-36.0); RED BLOOD CELL COUNT(AUTO) 3.54 MIL/uL (4.00-5.50); RED CELL DISTRIBUTION WIDTH 12.1 % (11.0-15.5); WHITE BLOOD COUNT (AUTO) 10.8 K/uL (4.8-10.8)
[2024-10-21 03:55] LABS: CREATININE 0.6 mg/dL (0.5-1.0); MAGNESIUM 2.6 mg/dL (1.80-2.40); POTASSIUM 3.9 mmol/L (3.5-5.1)
[2024-10-21] MEDS: 0.9%NACL 1000ML 1,000 ML IV SCH (06:35)
[2024-10-21] MEDS: CEFTRIAXONE 2GM VIAL IVPB SCH (07:17)
--- NOTE | 2024-10-21 09:34 | HMCIMG ---
Exam Type: CHEST 1VW Clinical Information: seizure, pneumothorax Comparison: None Findings: Ill-defined infiltrates of the left lower lobe are seen consistent with pneumonia. . The heart is normal in size. The bony and soft tissue structures show no worrisome pathology. IMPRESSION: Findings consistent with pneumonia. Follow-up is advised.
--- NOTE | 2024-10-21 10:14 | HMCIMG ---
Exam Type: CHEST 1VW Clinical Information: Pneumothorax Comparison: None Findings: Left pleural effusion is seen, stable, and there are no worrisome interval changes. IMPRESSION: Stable left pleural effusion.
--- NOTE | 2024-10-21 10:30 | CONS ---
GENERAL SURGERY CONSULTATION NOTE DATE OF CONSULTATION: Oct 21, 2024 TIME OF CONSULTATION: 10:29 CONSULTING SERVICE: Fany Walls MD REQUESTING PHYSICAIN: [ ] REASON FOR CONSULTATION: [ ] HISTORY OF PRESENT ILLNESS: [ ] PAST MEDICAL HISTORY: [ ] PAST SURGICAL HISTORY: [ ] FAMILY HISTORY: [ ] SOCIAL HISTORY: [ ] Current Medications Medications (Trade) Dose Ordered Sig/Issa Route Start Time Stop Time Status Last Admin Dose Admin Ceftriaxone Sodium (Rocephin 2gm Inj) 2 gm Q24H IVPB 10/21/24 07:00 10/31/24 06:59 10/21/24 07:17 2 GM Lactated Ringer's 1,000 ml @ 75 mls/hr [id number] IV 10/20/24 03:00 10/21/24 06:24 DC 10/20/24 20:53 75 MLS/HR Sodium Chloride 1,000 ml @ 0 mls/hr Q0M IV 10/21/24 00:15 10/21/24 07:02 DC Sodium Chloride 1,000 ml @ 0 mls/hr Q0M IV 10/21/24 00:30 10/21/24 00:17 DC Sodium Chloride 1,000 ml @ 100 mls/hr Q10H IV 10/21/24 06:30 11/20/24 06:29 10/21/24 06:35 100 MLS/HR Allergies: Coded Allergies: ibuprofen (Unverified Allergy, Mild, 12/15/23) REVIEW OF SYSTEMS: ASSOCIATE FINANCIAL ADVISOR: [Denies headaches or blurring of vision.] RESP: [No cough, chest pain or SOB.] CVS: [No palpitaions.] GI: [abdominal pain with nausea and vomiting, no diarrhea or constipation.] NICOLE: [No dysuria or hematuria.] Musculoskeletal: [No swelling or joint pain.] BACK: [No pain or swelling.] All other systems are reviewed and essentially negative pertinent positives in HPI. PHYSICAL EXAMINATION: GENERAL: [Patient is lying comfortably in bed, not in any obvious distress.] HEAD: [Normal with no signs of head trauma.] EYES: [Not pale not jaundiced afebrile to touch.] ENT: [ Normal.] NECK: [Supple,no tenderness,no lymphadenopathy,no masses,no thyromegaly ,no bruits, no JVD.] LUNGS: [Clear breath sounds bilaterally. No wheezes, rales, or rhonchi.] HEART: [Regular rate and rhythm. Normal S1 and S2, without murmurs, rub or gallop.] VASC: [No edema. Peripheral pulses normal and equal in all extremities.] ABD: [Bowel sounds present,soft, RUQ tender, no masses, no organomegaly.] : [Normal, no suprapubic tenderness.] LYMPH: [No lymphadenopathy noted.] EXT: [ Warm soft, non tender.] SKIN: [ No rashes or lesions.] NEURO: [ Awake Alert and oriented x3.] Vital Signs (last 8hr) Date Time Temp Pulse Resp B/P (MAP) Pulse Ox O2 Delivery O2 Flow Rate FiO2 10/21/24 08:00 97.2 87 20 144/83 100 Nonrebreathing Mask 13.0 10/21/24 07:45 20 Non Rebreather 15.0 100 10/21/24 04:00 98.2 65 19 117/52 100 Nonrebreathing Mask 13.0 LABORATORY: [ ] Hematology Labs: Test 10/21/24 03:38 10/19/24 16:07 Range/Units White Blood Count 10.8 4.8-10.8 K/uL Red Blood Count 3.54 L 4.00-5.50 MIL/uL Hemoglobin 11.4 L 12.0-16.0 g/dL Hematocrit 34.0 #L 36-48 % Mean Corpuscular Volume 96.0 79-99 fL Mean Corpuscular Hemoglobin 32.2 27.0-33.0 pg Mean Corpuscular Hemoglobin Concent 33.5 32.0-36.0 g/dL Red Cell Distribution Width 12.1 11.0-15.5 % Platelet Count 279 130-400 K/uL Mean Platelet Volume 10.5 7.5-10.5 fL Nucleated Red Blood Cells 0.0 0.0-0.19 % Immature Granulocyte % (Auto) 0.3 0-1 % Neutrophils (%) (Auto) 65.7 40.0-77.0 % Lymphocytes (%) (Auto) 24.9 21.0-51.0 % Monocytes (%) (Auto) 8.2 3.0-13.0 % Eosinophils (%) (Auto) 0.6 0.0-8.0 % Basophils (%) (Auto) 0.3 0.0-5.0 % Neutrophils # (Auto) 4.7 1.8-7.7 K/uL Lymphocytes # (Auto) 1.8 1.0-4.8 K/uL Monocytes # (Auto) 0.6 0.1-1.0 K/uL Eosinophils # (Auto) 0.04 0.00-0.70 K/uL Basophils # (Auto) 0.02 0.00-0.20 K/uL Absolute Immature Granulocyte (auto 0.02 0-1 K/uL Chemistry Labs: Test 10/21/24 03:38 10/20/24 23:01 10/20/24 09:06 10/19/24 16:07 Range/Units Sodium Level 137 136-145 mmol/L Potassium Level 3.9 3.5-5.1 mmol/L Chloride Level 102 101-111 mmol/L Carbon Dioxide Level 30 21-32 mmol/L Blood Urea Nitrogen 6 L 7-18 mg/dL Creatinine 0.6 0.5-1.0 mg/dL Glomerular Filtration Rate Calc 125 >90 mL/min Random Glucose 112 H 70-105 mg/dL Lactic Acid Level 0.9 0.8-2.5 mmol/L Total Calcium 8.4 L 8.5-10.1 mg/dL Magnesium Level 2.60 H 1.80-2.40 mg/dL Whole Blood Glucose 139 H 70-110 MG/DL Phosphorus Level 3.3 2.5-4.9 mg/dL Total Bilirubin 0.9 0.2-1.0 mg/dL Aspartate Amino Transf (AST/SGOT) 14 10-37 U/L Alanine Aminotransferase (ALT/SGPT) 15 12-78 U/L Alkaline Phosphatase 53 50-136 U/L Total Protein 7.0 6.0-8.3 g/dL Albumin 3.5 3.5-5.0 g/dL Total Creatine Kinase 103 21-232 U/L Troponin I High Sensitivity 9 4-50 ng/L Serum Test, Qualitative NEGATIVE NEGATIVE DIAGNOSTICS / RADIOLOGY: [Copy/Paste Echos/Imaging Report here] ASSESSMENT: [] PLAN: FANY WALLS MD Oct 21, 2024 10:30
[2024-10-21] MEDS: HYDROcodone/APAP 5/325 1 TAB TABLET PO PRN (11:31)
--- NOTE | 2024-10-21 13:06 | PN ---
[facility] PROGRESS NOTE Date Patient Seen: Oct 21, 2024 Time of Visit: 1129 Supervising Physician: Dr. Nieves Inpatient Consults: JAVON PROBLEM LIST: Acute hypoxemic respiratory failure, on oxygen via 2lpm, POA Left pneumothorax, less than 5%, s/p traumatic fall, per CT chest with contrast Nondisplaced fracture cannot be excluded, per CT chest Left lung contusion, per CT chest Intractable left lower rib/lower chest wall pain s/p fall injury three days ago Dyspnea, POA Intractable nausea GERD INTERVAL HISTORY: 10/21 patient was seen and examined by bedside with with family and primary nurse present. Patient is awake alert able to answer simple questions appropriately. At time of visit patient on room air appears to be tolerating well. Non- rebreather at 100% FiO2 has been removed. Patient's repeat chest x-ray shows resolution of 5% pneumothorax. Patient denies any chest pain or shortness of breadth. Patient denies nausea vomiting or abdominal pain. From a pulmonary standpoint patient is cleared for discharge. We will repeat patient's ABG if unremarkable cleared for discharge. REVIEW OF SYSTEMS: 12 point ROS reviewed with patient. Pertinent positives mentioned above. Otherwise negative. PHYSICAL EXAM: GENERAL: alert, weak, awake oriented x 3 HEENT: EOMI, Sclera non icteric, moist mucosa NECK: Supple, no JVD, trachea midline LUNGS: Clear breath sounds bilaterally. No wheezes HEART: Regular rate and rhythm. Normal S1 and S2, without murmurs ABD: Abdomen soft, nontender. Bowel sounds present EXT: No clubbing cyanosis or edema NEURO: Alert and oriented to person, follows commands Vital Signs (last 8hr) Date Time Temp Pulse Resp B/P (MAP) Pulse Ox O2 Delivery O2 Flow Rate FiO2 10/21/24 11:43 98.4 76 18 114/45 99 10/21/24 08:00 97.2 87 20 144/83 100 Nonrebreathing Mask 13.0 10/21/24 07:45 20 Non Rebreather 15.0 100 LABS: Hematology Labs: Test 10/21/24 03:38 10/19/24 16:07 Range/Units White Blood Count 10.8 4.8-10.8 K/uL Red Blood Count 3.54 L 4.00-5.50 MIL/uL Hemoglobin 11.4 L 12.0-16.0 g/dL Hematocrit 34.0 #L 36-48 % Mean Corpuscular Volume 96.0 79-99 fL Mean Corpuscular Hemoglobin 32.2 27.0-33.0 pg Mean Corpuscular Hemoglobin Concent 33.5 32.0-36.0 g/dL Red Cell Distribution Width 12.1 11.0-15.5 % Platelet Count 279 130-400 K/uL Mean Platelet Volume 10.5 7.5-10.5 fL Nucleated Red Blood Cells 0.0 0.0-0.19 % Immature Granulocyte % (Auto) 0.3 0-1 % Neutrophils (%) (Auto) 65.7 40.0-77.0 % Lymphocytes (%) (Auto) 24.9 21.0-51.0 % Monocytes (%) (Auto) 8.2 3.0-13.0 % Eosinophils (%) (Auto) 0.6 0.0-8.0 % Basophils (%) (Auto) 0.3 0.0-5.0 % Neutrophils # (Auto) 4.7 1.8-7.7 K/uL Lymphocytes # (Auto) 1.8 1.0-4.8 K/uL Monocytes # (Auto) 0.6 0.1-1.0 K/uL Eosinophils # (Auto) 0.04 0.00-0.70 K/uL Basophils # (Auto) 0.02 0.00-0.20 K/uL Absolute Immature Granulocyte (auto 0.02 0-1 K/uL Chemistry Labs: Test 10/21/24 03:38 10/20/24 23:01 10/20/24 09:06 10/19/24 16:07 Range/Units Sodium Level 137 136-145 mmol/L Potassium Level 3.9 3.5-5.1 mmol/L Chloride Level 102 101-111 mmol/L Carbon Dioxide Level 30 21-32 mmol/L Blood Urea Nitrogen 6 L 7-18 mg/dL Creatinine 0.6 0.5-1.0 mg/dL Glomerular Filtration Rate Calc 125 >90 mL/min Random Glucose 112 H 70-105 mg/dL Lactic Acid Level 0.9 0.8-2.5 mmol/L Total Calcium 8.4 L 8.5-10.1 mg/dL Magnesium Level 2.60 H 1.80-2.40 mg/dL Whole Blood Glucose 139 H 70-110 MG/DL Phosphorus Level 3.3 2.5-4.9 mg/dL Total Bilirubin 0.9 0.2-1.0 mg/dL Aspartate Amino Transf (AST/SGOT) 14 10-37 U/L Alanine Aminotransferase (ALT/SGPT) 15 12-78 U/L Alkaline Phosphatase 53 50-136 U/L Total Protein 7.0 6.0-8.3 g/dL Albumin 3.5 3.5-5.0 g/dL Total Creatine Kinase 103 21-232 U/L Troponin I High Sensitivity 9 4-50 ng/L Serum Test, Qualitative NEGATIVE NEGATIVE DIAGNOSTICS / RADIOLOGY RESULTS: na PLAN Repeat chest x-ray in a.m. shows resolution of 5% pneumothorax Repeat ABG if unremarkable cleared for discharge from a pulmonary standpoint Rest of the care per primary team NEURO: Minimize central acting medications as possible. Maintain fall precautions, adequate lighting during the day PULMONARY: Supplemental 02 as needed. Maintain aspiration precautions at all times CARDIOVASCULAR: Follow hemodynamics. Vital signs per facility protocol GI & NUTRITION: Continue with nutritional support. Continue stool softeners and laxatives as needed. KIDNEYS & ELECTROLYTES: Strict monitoring of intake, output and overall fluid balance. Avoid nephrotoxic medications to the extent possible. Medications to be dosed according to renal function. Monitor electrolytes and replace as needed ENDOCRINE: Maintain blood glucose between 100-180 at all times. Hypoglycemia protocol in place INFECTIOUS DISEASE: Trend temperature, WBC and procalcitonin level Follow cultures, deescalate antibiotics as soon as possible. Panculture if new onset fever ONCOLOGY/HEMATOLOGY/COAGULATION: Monitor for s/s of bleeding Monitor hemoglobin, coagulation studies as needed SKIN: Pressure ulcer prevention per facility protocol Specialty mattress ORTHO/REHAB: Continue PT/OT Prophylaxis: Continue GI and DVT prophylaxis Code Status: Full Resuscitation Disposition: TBD Other: Case discussed with supervising physician plan of care agreed upon UGO SALEEM Oct 21, 2024 13:06
[2024-10-21 14:37] LABS: ABG BASE EXCESS -1.3 mmol/L (-2.0-3.0); ABG HCO3 23.8 mmol/L (21.0-28.0); ABG OXYGEN SATURATION 93.7 % (94.0-98.0); ABG PCO2 42 mmHg (32-45); ABG PH 7.377 (7.350-7.450); CARBON MONOXIDE 0.3 % (0.5-1.5); DEVICE COMMENT KAYLEE RN LB; HHb 6.2; PO2, ARTERIAL BG 72.4 mmHg (83.0-108.0); VENT MODE, BG RA (ROOM AIR)
--- NOTE | 2024-10-21 14:54 | BSKYNEURO ---
[facility] Procedure Note [facility] Consult Consult [facility] Note # Demographics Consult Type: General Neurology Patient Location: Inpatient First Name: gerri Last Name: dee Date of : 1995 Age: 29 Gender: Female Facility: [facility] Time of Initial Page (Central Time): 10/21/2024 14:27 Time of Return Call (Central Time): 10/21/2024 14:28 # HPI History: Here for pneumothorax and New seizure last night. Has a 10 mo old baby. . Duration: - resolved # Scores Time of exam and NIHSS (Central Time): 10/21/2024 14:51 Level of Consciousness 1a: [0] = Alert; keenly responsive LOC Questions 1b: [0] = Answers both questions correctly LOC Commands 1c: [0] = Performs both tasks correctly Best Gaze 2: [0] = Normal Visual 3: [0] = No visual loss Facial Palsy 4: [0] = Normal symmetrical movements Motor Arm Left 5a: [0] = No drift Motor Arm Right 5b: [0] = No drift Motor Leg Left 6a: [0] = No drift Motor Leg Right 6b: [0] = No drift Limb Ataxia 7: [0] = Absent Sensory 8: [0] = Normal Best Language 9: [0] = No aphasia Dysarthria 10: [0] = Normal Extinction and Inattention 11: [0] = No abnormality NIHSS Total: 0 # Data Head CT: - no bleed - per radiologist read Other Imaging: benzodiazepine and thc in urine. # Assessment Impression: - Seizure First lifetime seizure last night . Could be from recent use or changes in benzodiazepine use. No neurologic deficits no meningismus. If additional seizures return immediately. No headaches # Plan Imaging / diagnostics: (urgency: outpatient): - MRI brain with and without - EEG Other: - If patient has any neurological deterioration please call me back immediately - I have discussed my recommendations with the referring provider - neurology referral as outpatient Additional Recommendations: should not drive until cleared by local team # Logistics Attestation of consult completion: The patient is located at: [facility]. Facility staff participated in the visit. I performed this telemedicine visit from my offsite office utilizing interactive 2 way audio and visual telecommunication technology. Total time spent in telemedicine encounter: I spent 21 minutes reviewing clinical data and/or imaging, obtaining history, examining the patient, communicating with the onsite care team, and in preparation of this report. # Demographics First Name: gerri Last Name: dee Facility: [facility] Electronically signed at 10/21/2024 14:53 (Central Time) by Irving Ramsay MD Neuro Consult Order placed for: Yes KASSIE RAMSAY MD Oct 21, 2024 14:54
--- NOTE | 2024-10-21 15:05 | PN ---
[facility] PROGRESS NOTE Date of Service: Oct 21, 2024 Time of Service: 14:[address] Centeno SUBJECTIVE: [29 year old female presented to the ER for left sided pain. Patient s/p fall while mopping. She complained of pain while taking deep breaths. Imaging noted 5% left pneumothorax/lung contusion. She continues to be on on oxygen supplementation on 2lpm with saturation of 100%. Patient was evaluated in the ED room 3. No labs as of yet, stat labs ordered. 10/21/24 patient was seen by nurse practitioner and physician during rounding in room 320 comfortably lying in bed. Family members mother and father at the bedside. Patient was cleared by surgeon and car stereo installer to be discharged home. Unfortunately patient had a seizure last night so CORRESPONDENCE SECTION SUPERVISOR order neuro tele and per their recommendation monitor patient for additional 24 hours and if no seizure patient could be discharged tomorrow in a.m. Drug test/urine test was positive for THC and benzodiazepines. It is possible that patient had the seizure due to positive drug test. Patient will need to follow up outpatient with neurologist for EEG and MRI brain with and without contrast. Patient and family members at the bedside we will informed regarding the further plan and they agree. In the meantime we will continue to monitor patient. A.m. labs. Anticipated discharge within 24 hours. ] REVIEW OF SYSTEMS 12-point ROS reviewed with the patient. All pertinent positives mentioned above. Otherwise negative, noncontributory, or non-pertinent. PHYSICAL EXAM GENERAL APPEARANCE: The patient is awake, alert, and oriented, in no acute cardiopulmonary distress. NEUROLOGICAL: Cranial nerves II-XII grossly intact. Motor is 5/5 in bilateral upper and lower extremities proximal to distal. No sensory deficits. HEENT: Face is symmetric. Pupils are equal and reactive. Extraocular movements are intact. NECK: Supple. No JVD. No thyromegaly. No submental, submandibular, pre- /postauricular, occipital or supraclavicular lymphadenopathy. CHEST: Normal chest expansion. No Telemetry. LUNGS: Absence of any rales, rhonchi or any wheezing. CARDIOVASCULAR: Regular. S1 and S2 normal. No appreciable rubs, murmurs or gallops. ABDOMEN: Soft, nontender, and nondistended. There is no rebound, voluntary guarding, or rigidity. : Deferred. No Mendoza. EXTREMITIES: Non-edematous and not cyanotic. No clubbing. Good capillary ref ill. SKIN: No skin breakdown. Vital Signs (last 8hr) Date Time Temp Pulse Resp B/P (MAP) Pulse Ox O2 Delivery O2 Flow Rate FiO2 10/21/24 11:43 98.4 76 18 114/45 99 10/21/24 08:00 97.2 87 20 144/83 100 Nonrebreathing Mask 13.0 10/21/24 07:45 20 Non Rebreather 15.0 100 LABS: Laboratory: Test 10/21/24 14:35 10/21/24 03:38 10/20/24 23:20 10/20/24 23:01 Range/Units Blood Gas Specimen Type Arterial Arterial Blood pH 7.377 7.350-7.450 Arterial Blood Partial Pressure CO2 42 32-45 mmHg Arterial Blood Partial Pressure O2 72.4 L 83.0-108.0 mmHg Arterial Blood HCO3 23.8 21.0-28.0 mmol/L Arterial Blood Oxygen Saturation 93.7 L 94.0-98.0 % Arterial Blood Base Excess -1.3 -2.0-3.0 mmol/L Hemoglobin (Blood Gas) 12.8 12.0-16.0 g/dL Sodium (Blood Gas) 137 136-145 MMOL/L Bedside Potassium (Blood Gas) 3.9 3.4-4.5 MMOL/L Bedside Chloride (Blood Gas) 104 98-107 MMOL/L Bedside Glucose (Blood Gas) 106 H 65-95 MG/DL Bedside Ionized Calcium (Blood Gas) 1.17 1.15-1.33 MMOL/L Bedside Lactic Acid (Blood Gas) 0.81 H 0.36-0.75 MMOL/L Blood Gas Temperature 37.0 35.5-37.0 CELSIUS Blood Gas Vent Mode RA ROOM AIR FiO2 21.0 % Blood Gas Specimen Comment THUAN RN LB White Blood Count 10.8 4.8-10.8 K/uL Red Blood Count 3.54 L 4.00-5.50 MIL/uL Hemoglobin 11.4 L 12.0-16.0 g/dL Hematocrit 34.0 #L 36-48 % Mean Corpuscular Volume 96.0 79-99 fL Mean Corpuscular Hemoglobin 32.2 27.0-33.0 pg Mean Corpuscular Hemoglobin Concent 33.5 32.0-36.0 g/dL Red Cell Distribution Width 12.1 11.0-15.5 % Platelet Count 279 130-400 K/uL Mean Platelet Volume 10.5 7.5-10.5 fL Nucleated Red Blood Cells 0.0 0.0-0.19 % Sodium Level 137 136-145 mmol/L Potassium Level 3.9 3.5-5.1 mmol/L Chloride Level 102 101-111 mmol/L Carbon Dioxide Level 30 21-32 mmol/L Blood Urea Nitrogen 6 L 7-18 mg/dL Creatinine 0.6 0.5-1.0 mg/dL Glomerular Filtration Rate Calc 125 >90 mL/min Random Glucose 112 H 70-105 mg/dL Lactic Acid Level 0.9 0.8-2.5 mmol/L Total Calcium 8.4 L 8.5-10.1 mg/dL Magnesium Level 2.60 H 1.80-2.40 mg/dL Urine Color COLORLESS YELLOW Urine Appearance CLOUDY H CLEAR Urine pH 6.5 5.0-8.0 Urine Specific Hutchinson 1.010 1.001-1.031 Urine Protein NEGATIVE NEGATIVE mg/dL Urine Glucose (UA) NEGATIVE NEGATIVE mg/dL Urine Ketones 10 H NEGATIVE mg/dL Urine Occult Blood NEGATIVE NEGATIVE Urine Nitrate NEGATIVE NEGATIVE Urine Bilirubin NEGATIVE NEGATIVE mg/dL Urine Urobilinogen 0.2 0.2-1.0 mg/dL Urine Leukocyte Esterase 75 H NEGATIVE Brent/uL Urine RBC 0-1 0-1 /HPF Urine WBC 2-5 H 0-1 /HPF Urine Squamous Epithelial Cells MANY 0-2 /HPF Urine Bacteria FEW None Seen /HPF Urine Opiates Screen NEGATIVE NEGATIVE Urine Barbiturates Screen NEGATIVE NEGATIVE Urine Phencyclidine Screen NEGATIVE NEGATIVE Urine Amphetamines Screen NEGATIVE NEGATIVE Urine Benzodiazepines Screen POSITIVE H NEGATIVE Urine Cocaine Screen NEGATIVE NEGATIVE Urine Marijuana (THC) Screen POSITIVE H NEGATIVE Whole Blood Glucose 139 H 70-110 MG/DL Test 10/20/24 22:59 10/20/24 09:06 10/19/24 16:07 Range/Units Blood Gas Flow-by 15.00 0.00-15.00 L/min Phosphorus Level 3.3 2.5-4.9 mg/dL Total Bilirubin 0.9 0.2-1.0 mg/dL Aspartate Amino Transf (AST/SGOT) 14 10-37 U/L Alanine Aminotransferase (ALT/SGPT) 15 12-78 U/L Alkaline Phosphatase 53 50-136 U/L Total Protein 7.0 6.0-8.3 g/dL Albumin 3.5 3.5-5.0 g/dL Immature Granulocyte % (Auto) 0.3 0-1 % Neutrophils (%) (Auto) 65.7 40.0-77.0 % Lymphocytes (%) (Auto) 24.9 21.0-51.0 % Monocytes (%) (Auto) 8.2 3.0-13.0 % Eosinophils (%) (Auto) 0.6 0.0-8.0 % Basophils (%) (Auto) 0.3 0.0-5.0 % Neutrophils # (Auto) 4.7 1.8-7.7 K/uL Lymphocytes # (Auto) 1.8 1.0-4.8 K/uL Monocytes # (Auto) 0.6 0.1-1.0 K/uL Eosinophils # (Auto) 0.04 0.00-0.70 K/uL Basophils # (Auto) 0.02 0.00-0.20 K/uL Absolute Immature Granulocyte (auto 0.02 0-1 K/uL Total Creatine Kinase 103 21-232 U/L Troponin I High Sensitivity 9 4-50 ng/L Serum Test, Qualitative NEGATIVE NEGATIVE Current Medications Medications (Trade) Dose Ordered Sig/Issa Route PRN Reason Start Time Stop Time Status Last Admin Dose Admin Acetaminophen (TYLenol 325MG TAB) 650 mg Q6H PRN PO FEVER/MILD PAIN LEVEL 1-3 10/19/24 18:30 11/18/24 18:29 10/20/24 01:29 650 MG Acetaminophen (TYLenol 650MG SUPPOSITORY) 650 mg Q6H PRN RC FEVER / MILD PAIN 1-3 IF NPO 10/19/24 18:30 11/18/24 18:29 Acetaminophen/ Hydrocodone Bitart (NORco 5/325MG) 1 tab Q6H PRN PO MILD PAIN (1-3) 10/19/24 18:30 10/20/24 11:59 DC Acetaminophen/ Hydrocodone Bitart (NORco 5/325MG) 1 tab Q6H PRN PO MODERATE PAIN (4-6) 10/20/24 12:00 10/25/24 11:59 10/21/24 11:31 1 TAB Albuterol (DUOneb) 1 udvial [id number] PRN IH SHORTNESS OF BREATH/WHEEZING 10/19/24 18:30 11/18/24 18:29 Ceftriaxone Sodium (Rocephin 2gm Inj) 2 gm Q24H IVPB 10/21/24 07:00 10/31/24 06:59 10/21/24 07:17 2 GM Chlordiazepoxide HCl (LIBrium 25 MG CAP) 25 mg Q2H PRN PO ALCOHOL WITHDRAWAL PROTOCOL 10/21/24 03:30 10/28/24 03:29 Dextrose (D50w) 50 ml AD PRN IV HYPOGLYCEMIA PROTOCOL 10/20/24 21:00 11/19/24 20:59 Docusate Sodium (COLace 100MG CAP) 100 mg BID PRN PO c 10/19/24 18:30 11/18/24 18:29 Glucagon (Glucagon 1mg Kit) 1 mg AD PRN IM HYPOGLYCEMIA PROTOCOL 10/20/24 21:00 11/19/24 20:59 Hydralazine HCl (APRESOLine 20MG INJ) 5 mg Q6H6 PRN IV SBP GREATER THAN 160 10/20/24 12:00 11/18/24 18:29 Hydralazine HCl (APRESOLine 20MG INJ) 10 mg Q2H PRN IV SBP GREATER THAN 160 10/19/24 18:30 10/20/24 11:59 DC Lactated Ringer's 1,000 ml @ 75 mls/hr [id number] IV 10/20/24 03:00 10/21/24 06:24 DC 10/20/24 20:53 75 MLS/HR Lactulose (Constulose 20gm/ 30ml Udcup) 20 gm Q6H PRN PO CONSTIPATION 10/19/24 18:30 11/18/24 18:29 Lorazepam (AtiVAN) 2 mg ONCE PRN IVP SEIZURES 10/21/24 00:00 Lorazepam (AtiVAN) 2 mg Q4H PRN IVP ALCOHOL WITHDRAWAL PROTOCOL 10/21/24 03:30 10/28/24 03:29 Magnesium Sulfate 50 ml @ 0 mls/hr PROTOCOL PRN IV MAGNESIUM PROTOCOL 10/20/24 21:00 11/19/24 20:59 10/20/24 20:54 20 MLS/HR Morphine Sulfate (morPHINE 2MG SYG) 2 mg Q4H PRN IVP SEVERE PAIN (7-10) 10/20/24 12:00 10/27/24 11:59 10/21/24 01:59 2 MG Morphine Sulfate (morPHINE 4MG SYG) 4 mg Q4H PRN IVP SEVERE PAIN (7-10) 10/20/24 08:30 10/20/24 11:59 DC 10/20/24 08:31 4 MG Ondansetron HCl (zoFRAN 4MG INJ) 4 mg Q6H PRN IVP NAUSEA/VOMITING 10/19/24 18:30 11/18/24 18:29 10/21/24 12:34 4 MG Pharmacy Profile Note (Pharmacy Communication) 1 each PROTOCOL PRN MISC ETOH Withdrawal Score changes 10/21/24 03:30 10/28/24 03:29 Potassium Chloride 100 ml @ 100 mls/hr AD PRN IV POTASSIUM PROTOCOL 10/20/24 21:00 11/19/24 20:59 Potassium Chloride (K-Dur/Klor-Con 20meq) 20 meq AD PRN PO POTASSIUM PROTOCOL 10/20/24 21:00 11/19/24 20:59 Potassium Chloride (KCl 10% Elixir 20meq/15ml) 20 meq AD PRN PO POTASSIUM PROTOCOL 10/20/24 21:00 11/19/24 20:59 Sodium Chloride 1,000 ml @ 0 mls/hr Q0M IV 10/21/24 00:15 10/21/24 07:02 DC Sodium Chloride 1,000 ml @ 0 mls/hr Q0M IV 10/21/24 00:30 10/21/24 00:17 DC Sodium Chloride 1,000 ml @ 100 mls/hr Q10H IV 10/21/24 06:30 11/20/24 06:29 10/21/24 06:35 100 MLS/HR Temazepam (restORIL 15 MG CAP) 15 mg HS PRN PO INSOMNIA/SLEEP 10/19/24 18:30 10/21/24 03:30 DC DIAGNOSTICS / RADIOLOGY: [ ] ASSESSMENT: New onset of seizure Acute hypoxemic respiratory failure, on oxygen via 2lpm, POA-resolved Left pneumothorax, less than 5%, s/p traumatic fall, per CT chest with contrast Nondisplaced fracture cannot be excluded, per CT chest Left lung contusion, per CT chest Intractable left lower rib/lower chest wall pain s/p fall injury three days ago Dyspnea, POA Intractable nausea GERD PLAN: Admit to medical floor with continuous telemetry monitoring. Dr. Lundberg, general surgeon cleared patient to be discharged home Monitor respiratory status closely. Continue oxygen therapy as needed. Titrate oxygen to keep SpO2 equal to greater than 92%. Albuterol and Atrovent as needed for shortness of breath or wheezing. Pulmonology consulted for eval of pneumothorax cleared patient to be discharged home P.r.n. medications for: Pain management, fever, nausea, vomiting, constipation, hypertension. Reconcile home medications once available. Monitor renal and liver function. Monitor electrolytes and treat accordingly. Stat labs this morning Urinalysis positive for leukocytosis Drug screen positive for THC and benzos Case discussed with Dr. Centeno, above plan was formulated NOLVIA GENTILE APRN Oct 21, 2024 15:04
[2024-10-22] VITALS: BP 101/53; PULSE 79; RESP 19; TEMP 98.7
[2024-10-22 04:00] VITALS: BP 111/72; PULSE 83; RESP 17; TEMP 98.4
[2024-10-22 06:09] LABS: BASOPHILS # (AUTO) 0.03 K/uL (0.00-0.20); BASOPHILS % (AUTO) 0.4 % (0.0-5.0); EOSINOPHILS # (AUTO) 0.09 K/uL (0.00-0.70); EOSINOPHILS % (AUTO) 1.3 % (0.0-8.0); HEMATOCRIT 35.4 % (36-48); IMMATURE GRANULOCYTE ABSOLUTE 0.03 K/uL (0-1); LYMPHOCYTES # (AUTO) 1.8 K/uL (1.0-4.8); LYMPHOCYTES % (AUTO) 24.9 % (21.0-51.0); MEAN CORPUSCULAR HGB CONC 32.5 g/dL (32.0-36.0); MEAN CORPUSCULAR VOLUME 98.6 fL (79-99); MONOCYTES # (AUTO) 0.6 K/uL (0.1-1.0); MONOCYTES % (AUTO) 8.4 % (3.0-13.0); NEUTROPHILS # (AUTO) 4.5 K/uL (1.8-7.7); NEUTROPHILS % (AUTO) 64.6 % (40.0-77.0); PLATELET COUNT (AUTO) 266 K/uL (130-400); RED BLOOD CELL COUNT(AUTO) 3.59 MIL/uL (4.00-5.50)
[2024-10-22 06:21] LABS: ALBUMIN 3.5 g/dL (3.5-5.0); BILIRUBIN,TOTAL 1.1 mg/dL (0.2-1.0); CREATININE 0.7 mg/dL (0.5-1.0); MAGNESIUM 2.2 mg/dL (1.80-2.40); POTASSIUM 3.7 mmol/L (3.5-5.1); TOTAL PROTEIN, SERUM 6.9 g/dL (6.0-8.3)
[2024-10-22 08:00] VITALS: BP 106/60; PULSE 57; RESP 18; TEMP 98.4; O2SAT 99
[2024-10-22] MEDS ORDERED: AMOX1TAB16 PO (10:30)
--- NOTE | 2024-10-22 10:35 | DS ---
Discharge Summary Hospital Course Summary: DATE OF ADMISSION:[10/19/2024] DATE OF DISCHARGE:[10/22/2024] DISPOSITION:[Home] CONDITION:[Stable] CONSULTANTS:[Surgeon, clinical education manager, neurologist] FOLLOW UP APPOINTMENTS:[PCP 2 to 3 days. Surgeon as needed. Soap Chipper 1 to 2 weeks. Neurologist within a week] PROCEDURES:[None] IMAGING: report attached to summary MICROBIOLOGY: report attached to summary ACTIVITY:[Independent] HOME MEDICATIONS: see [facility] [place] NEW MEDICATIONS:[Augmentin 875 mg p.o. b.i.d. x7 days] EMERGENCY INSTRUCTIONS: The patient was instructed to present to the nearest Emergency departmentr or call 911 once their symptoms will return or worsen Education Associate(s): [29 year old female presented to the ER for left sided pain. Patient s/p fall while mopping. She complained of pain while taking deep breaths. Imaging noted 5% left pneumothorax/lung contusion. Throughout the hospitalization chest x-ray showed left lower lobe infiltrate atelectasis small left pleural effusion. Tiny left pneumothorax which improved. Nondisplaced fracture can not be excluded. Chest x-ray showed left pleural effusion which was stable. 2D echo 60 to 65% EF normal function. CT abdomen/pelvis negative. Head CT negative. Per surgeon patient was cleared and can be discharged home. Patient was also evaluated by clinical education manager and at this moment also was cleared to be discharged home follow up in 1 to 2 weeks. Also patient had an episode of seizure overnight 2/2 to 2/3. Neurologist was consulted and as the recommendation MRI brain with and without contrast and EEG to be performed outpatient. No medications ordered. Patient to follow up outpatient with neurologist within one week. We also recommended the patient follow ups with PCP in 2 to 3 days. Patient denies any shortness of breath, chest pain, nausea, vomiting or any other discomfort. Procedure(s): REVIEW OF SYSTEMS 12-point ROS reviewed with the patient. All pertinent positives mentioned above. Otherwise negative, noncontributory, or non-pertinent. PHYSICAL EXAM GENERAL APPEARANCE: The patient is awake, alert, and oriented, in no acute cardiopulmonary distress. NEUROLOGICAL: Cranial nerves II-XII grossly intact. Motor is 5/5 in bilateral upper and lower extremities proximal to distal. No sensory deficits. HEENT: Face is symmetric. Pupils are equal and reactive. Extraocular movements are intact. NECK: Supple. No JVD. No thyromegaly. No submental, submandibular, pre- /postauricular, occipital or supraclavicular lymphadenopathy. CHEST: Normal chest expansion. No Telemetry. LUNGS: Absence of any rales, rhonchi or any wheezing. CARDIOVASCULAR: Regular. S1 and S2 normal. No appreciable rubs, murmurs or gallops. ABDOMEN: Soft, nontender, and nondistended. There is no rebound, voluntary guarding, or rigidity. : Deferred. No Mendoza. EXTREMITIES: Non-edematous and not cyanotic. No clubbing. Good capillary refill. SKIN: No skin breakdown. Assessment/Plan: ASSESSMENT: New onset of seizure Acute hypoxemic respiratory failure, on oxygen via 2lpm, POA-resolved Left pneumothorax, less than 5%, s/p traumatic fall, per CT chest with contrast Nondisplaced fracture cannot be excluded, per CT chest Left lung contusion, per CT chest Intractable left lower rib/lower chest wall pain s/p fall injury three days ago Dyspnea, POA Intractable nausea GERD Home Medications: Discontinued Reported Medications Acetaminophen with Codeine (Acetaminophen-Cod #3 Tablet) 300 Mg-30 Mg Tablet, 1 EACH PO Q4H, #30 TAB 12/16/23 Ibuprofen (Ibuprofen 800 mg Tab) 800 Mg Tab, 800 MG PO Q8H PRN for PAIN, #60 TAB 12/16/23 Docusate Sodium (Colace) 100 Mg Capsule, 100 MG PO BID, #60 CAP 12/16/23 Vit/Iron Fumarate/FA ( Tablet) 28 Mg Iron-800 Mcg Tablet, 1 EACH PO HS, TAB 12/15/23 Time spent arranging discharge: 31-60 minutes ATTESTATION BY PHYSICIAN I have seen and examined the patient. I reviewed the documentation, medical decision making, and treatment plan as noted by the mid-level provider above. I agree with the findings and plan of care. ANAYA STRAUSS MD, KATARZYNA B APRN Oct 22, 2024 10:35
--- NOTE | 2024-10-22 11:06 | PN ---
[facility] PROGRESS NOTE Date Patient Seen: Oct 22, 2024 Time of Visit: 11:05 Supervising Physician: [Dr. Anand] Inpatient Consults: BIS PROBLEM LIST: Acute hypoxemic respiratory failure, on oxygen via 2lpm, POA Left pneumothorax, less than 5%, s/p traumatic fall, per CT chest with contrast Nondisplaced fracture cannot be excluded, per CT chest Left lung contusion, per CT chest Intractable left lower rib/lower chest wall pain s/p fall injury three days ago Dyspnea, POA Intractable nausea GERD INTERVAL HISTORY: 10/21 patient was seen and examined by bedside with with family and primary nurse present. Patient is awake alert able to answer simple questions appropriately. At time of visit patient on room air appears to be tolerating well. Non- rebreather at 100% FiO2 has been removed. Patient's repeat chest x-ray shows resolution of 5% pneumothorax. Patient denies any chest pain or shortness of breadth. Patient denies nausea vomiting or abdominal pain. From a pulmonary standpoint patient is cleared for discharge. We will repeat patient's ABG if unremarkable cleared for discharge. 10/22 Patient is improved to room air, no current respiratory distress. ABG is r eviewed and WNL on room air. CBC/CMP are unremarkable. Patient is cleared for discharge from pulmonary standpoint. REVIEW OF SYSTEMS: 12 point ROS reviewed with patient. Pertinent positives mentioned above. Otherwise negative. PHYSICAL EXAM: GENERAL: alert, weak, awake oriented x 3 HEENT: EOMI, Sclera non icteric, moist mucosa NECK: Supple, no JVD, trachea midline LUNGS: Clear breath sounds bilaterally. No wheezes HEART: Regular rate and rhythm. Normal S1 and S2, without murmurs ABD: Abdomen soft, nontender. Bowel sounds present EXT: No clubbing cyanosis or edema NEURO: Alert and oriented to person, follows commands Vital Signs (last 8hr) Date Time Temp Pulse Resp B/P (MAP) Pulse Ox O2 Delivery O2 Flow Rate FiO2 10/22/24 08:00 98.4 57 18 106/60 99 Room Air 10/22/24 04:00 98.4 83 17 111/72 99 Room Air 21 LABS: Hematology Labs: Test 10/22/24 05:40 Range/Units White Blood Count 7.0 4.8-10.8 K/uL Red Blood Count 3.59 L 4.00-5.50 MIL/uL Hemoglobin 11.5 L 12.0-16.0 g/dL Hematocrit 35.4 L 36-48 % Mean Corpuscular Volume 98.6 79-99 fL Mean Corpuscular Hemoglobin 32.0 27.0-33.0 pg Mean Corpuscular Hemoglobin Concent 32.5 32.0-36.0 g/dL Red Cell Distribution Width 12.0 11.0-15.5 % Platelet Count 266 130-400 K/uL Mean Platelet Volume 10.4 7.5-10.5 fL Immature Granulocyte % (Auto) 0.4 0-1 % Neutrophils (%) (Auto) 64.6 40.0-77.0 % Lymphocytes (%) (Auto) 24.9 21.0-51.0 % Monocytes (%) (Auto) 8.4 3.0-13.0 % Eosinophils (%) (Auto) 1.3 0.0-8.0 % Basophils (%) (Auto) 0.4 0.0-5.0 % Neutrophils # (Auto) 4.5 1.8-7.7 K/uL Lymphocytes # (Auto) 1.8 1.0-4.8 K/uL Monocytes # (Auto) 0.6 0.1-1.0 K/uL Eosinophils # (Auto) 0.09 0.00-0.70 K/uL Basophils # (Auto) 0.03 0.00-0.20 K/uL Absolute Immature Granulocyte (auto 0.03 0-1 K/uL Nucleated Red Blood Cells 0.0 0.0-0.19 % Chemistry Labs: Test 10/22/24 05:40 10/21/24 03:38 10/20/24 23:01 Range/Units Sodium Level 142 136-145 mmol/L Potassium Level 3.7 3.5-5.1 mmol/L Chloride Level 105 101-111 mmol/L Carbon Dioxide Level 30 21-32 mmol/L Blood Urea Nitrogen 9 7-18 mg/dL Creatinine 0.7 0.5-1.0 mg/dL Glomerular Filtration Rate Calc 121 >90 mL/min Random Glucose 90 70-105 mg/dL Total Calcium 8.4 L 8.5-10.1 mg/dL Magnesium Level 2.20 1.80-2.40 mg/dL Total Bilirubin 1.1 H 0.2-1.0 mg/dL Aspartate Amino Transf (AST/SGOT) 16 10-37 U/L Alanine Aminotransferase (ALT/SGPT) 19 12-78 U/L Alkaline Phosphatase 52 50-136 U/L Total Protein 6.9 6.0-8.3 g/dL Albumin 3.5 3.5-5.0 g/dL Lactic Acid Level 0.9 0.8-2.5 mmol/L Whole Blood Glucose 139 H 70-110 MG/DL DIAGNOSTICS / RADIOLOGY RESULTS: Exam Type: CHEST 1VW Clinical Information: Pneumothorax Comparison: None Findings: Left pleural effusion is seen, stable, and there are no worrisome interval changes. IMPRESSION: Stable left pleural effusion. PLAN Cleared for discharge from a pulmonary standpoint Rest of the care per primary team NEURO: Minimize central acting medications as possible. Maintain fall precautions, adequate lighting during the day PULMONARY: Supplemental 02 as needed. Maintain aspiration precautions at all times CARDIOVASCULAR: Follow hemodynamics. Vital signs per facility protocol GI & NUTRITION: Continue with nutritional support. Continue stool softeners and laxatives as needed. KIDNEYS & ELECTROLYTES: Strict monitoring of intake, output and overall fluid balance. Avoid nephrotoxic medications to the extent possible. Medications to be dosed according to renal function. Monitor electrolytes and replace as needed ENDOCRINE: Maintain blood glucose between 100-180 at all times. Hypoglycemia protocol in place INFECTIOUS DISEASE: Trend temperature, WBC and procalcitonin level Follow cultures, deescalate antibiotics as soon as possible. Panculture if new onset fever ONCOLOGY/HEMATOLOGY/COAGULATION: Monitor for s/s of bleeding Monitor hemoglobin, coagulation studies as needed SKIN: Pressure ulcer prevention per facility protocol Specialty mattress ORTHO/REHAB: Continue PT/OT Prophylaxis: Continue GI and DVT prophylaxis Code Status: Full Resuscitation Disposition: TBD Other: Case discussed with supervising physician plan of care agreed upon MYRNA OVALLE Oct 22, 2024 11:06
[2024-10-22 12:00] VITALS: BP 120/70; PULSE 66; RESP 18; TEMP 98.9
== END 2024-10-22 12:15 | disposition home or self-care (01) | DRG 189 ==
LOC: EDH 15:15 → EDHIP 15:16 → OBSVTOIN 15:16 → EDHIP 18:08 → UNDOADMOB 18:08 → 3CH 10-20 22:54
PROVIDERS: ADMIT Internal Medicine; ATTEND Internal Medicine
DX: J96.01 Acute respiratory failure with hypoxia (principal); S27.0XXA Traumatic pneumothorax, initial encounter; J90 Pleural effusion, not elsewhere classified; S27.321A Contusion of lung, unilateral, initial encounter; J98.11 Atelectasis; K21.9 Gastro-esophageal reflux disease without esophagitis; I10 Essential (primary) hypertension; K59.00 Constipation, unspecified; R56.9 Unspecified convulsions; W01.190A Fall on same level from slipping, tripping and stumbling with subsequent striking against furniture, initial encounter; Y93.9 Activity, unspecified; Y92.9 Unspecified place or not applicable; Y99.9 Unspecified external cause status; Z98.891 History of uterine scar from previous surgery
CPT/HCPCS: 36415; 36600; 70450; 71045; 71260; 74177; 80048; 80053; 80305; 81001; 82435; 82550; 82803; 82947; 82948; 83605; 83735; 84100; 84132; 84295; 84484; 84703; 85018; 85025; 85027; 87086; 93005; 93306; 93356; G0378; J0696; J1171; J2060; J2270; J2405; J2550; J3475; J3480; J3490; J7120; Q9967